=== PATIENT | female | born 1970 | race Caucasian/White ===

== ENCOUNTER 2017-04-22 04:42 | Inpatient (IN) | payer OTHER ==
[2017-04-22 05:28] LABS: #Basophils 0.1 thou/uL (0.0-0.2); #Eosinphils 0.2 thou/uL (0.0-0.7); #Lymphocytes 2.4 thou/uL (1.20-3.40); #Monocytes 0.1 thou/uL (0.11-0.59); #Neutrophils 11.4 thou/uL (1.40-6.50); %Basophils 0.8 % (0.0-1.0); %Eosinophils 1.1 % (0.0-10.0); %Lymphocytes 17.1 % (21.0-51.0); %Monocytes 0.9 % (0.0-10.0); %Neutrophils 80.2 % (42.0-75.0); Hemoglobin 13.1 g/dL (12.0-16.0); Mean Corpuscular HGB CONC 30.9 g/dL (32.0-36.0); Mean Corpuscular Hemoglobin 29.6 pg (27.0-31.0); Mean Corpuscular Volume 95.7 fl (81.0-99.0); Mean Platelet Volume 8.6 fL (7.4-10.4); Platelet Count 295 thou/uL (130-400); Red Blood Cell (RBC) Count 4.43 mill/uL (4.20-5.40); White Blood Cell (WBC) Count 14.3 thou/uL (4.8-10.8)
[2017-04-22 05:59] LABS: ALT (SGPT) 66 U/L (8-55); AST (SGOT) 68 U/L (5-34); Albumin 4.1 g/dL (3.5-5.0); Alkaline Phosphatase 153 U/L (40-150); Anion Gap 14 mmol/L (10-20); BUN (Urea Nitrogen) 15 mg/dL (7.0-18.7); Bilirubin, Total 0.8 mg/dL (0.2-1.2); Calc. Creatinine Clearance 0 mL/min (70-130); Calcium 10.1 mg/dL (7.8-10.44); Carbon Dioxide 28 mmol/L (22-29); Chloride 105 mmol/L (98-107); Estimated GFR-MDRD 90; Globulin 3.5 g/dL (2.4-3.5); Glucose 87 mg/dL (70-105); Potassium 4.1 mmol/L (3.5-5.1); Protein, Total 7.6 g/dL (6.0-8.3); Sodium 143 mmol/L (136-145)
[2017-04-22] MEDS ORDERED: Cefepime 2 GM in Syringe 12.5 ML SLOW IVP SCH (06:15)
[2017-04-22 06:31] LABS: Bilirubin Negative (Negative); Blood, Urine Moderate (Negative); Clarity TURBID (Clear); Glucose, Urine (Dipstick) Negative (Negative); Leukocyte Small (Negative); Nitrite Negative (Negative); Protein, Urine (Dipstick) Negative (Neg-Trace); pH, Urine 5.5 (5.0-9.0)
[2017-04-22 06:34] LABS: Bacteria/HPF 4+ HPF (None Seen); RBC/HPF 21-50 HPF (0-3); Squamous Epithelial 0-3 HPF (0-3)
[2017-04-22 06:35] LABS: Pathc Cast-AUWi Flag 6.89 (0-2.49); Yeast-AUWi Flag 2185.6 (0-25.0)
[2017-04-22 06:50] LABS: Hyaline Casts/LPF 0-3 HYALINE CAST LPF (0-3 Hyaline); Other Casts/LPF None Seen LPF (0-3 Hyaline); Yeast-All Forms None Seen HPF (None Seen)
[2017-04-22] MEDS ORDERED: Gentamicin Sulfate 310 MG in Sodium Chloride 0.9% 100 ML IVPB SCH (07:00)
[2017-04-22] MEDS ORDERED: Ondansetron HCl/PF 4 MG/2 ML Vial ONE (08:11)
[2017-04-22] MEDS ORDERED: Ondansetron HCl/PF 4 MG/2 ML Vial IVP PRN (08:15)
--- NOTE | 2017-04-22 08:25 | RAD ---
CHEST 1 VIEW: Date: 04/22/17 HISTORY: Low O2 sats. COMPARISON: None. FINDINGS: Multifocal air space opacities along the hilum and lower lobes. No pneumothorax. The exam is limited due to patient hypoinflation. IMPRESSION: Multifocal air space opacities may reflect infection or atelectasis. Follow-up 2 views chest recommen ded. POS: SHANA
[2017-04-22] MEDS ORDERED: Acetaminophen 500 MG TAB ONE (10:10)
--- NOTE | 2017-04-22 12:40 | HP-2 ---
DATE OF ADMISSION: 04/22/2017 CODE STATUS: FULL. PRIMARY CARE PHYSICIAN: Aj. ATTENDING: Dr. Crowley. RESIDENT: Dr. Brian Coombs. HISTORIAN: Patient. CHIEF COMPLAINT: Shortness of breath and nausea and vomiting. HISTORY OF PRESENT ILLNESS: This is a 46-year-old female with a past medical history of [place]'s disease, who presents from [facility] with shortness of breath and nausea and vomiting t hat started yesterday. She stated that she also normally requires 2 liters of oxygen at home, but wa s requiring up to 4 liters at home. Also, in the EMS ride on the way over, she was acutely hypoxic i n the upper 80s. She says that she has vomited several times over the past 2 days. She has generali zed weakness and body ache. She did not get a flu shot and her [facility]mate [facility] has been sick. ER, she received gentamicin 5 mg/kg, cefepime 2 grams, vancomycin 1 gram, and 2 liters of normal sali ne. PAST MEDICAL HISTORY: 1. [place] disease. 2. Gastroesophageal reflux disease. 3. Anxiety. 4. Depression. 5. Rheumatoid arthritis. PAST SURGICAL HISTORY: Bilateral cataract surgery. ALLERGIES: LEVAQUIN. MEDICATIONS1 1. Promethazine p.r.n. 2. Benzonatate. 3. Tylenol 500 mg 2 tabs q.4 hours. 4. Tramadol 50 mg q.6 hours. 5. B12. 6. Tizanidine 8 mg daily. 7. Ropinirole 0.25 at bedtime. 5. Protonix 40 mg p.o. daily. 6. Oxybutynin. 7. Namenda 5 mg daily. 8. Methotrexate 10 mg daily. 9. Lisinopril 10 mg daily. 10. Gabapentin 600 mg t.i.d. 11. Folic acid. 12. Clonazepam 1 mg b.i.d. 13. Celexa 20 mg daily. 14. Amitriptyline 50 mg daily. 15. Tylenol plus Codeine p.r.n. SOCIAL HISTORY: Denies tobacco, alcohol, or drug use. REVIEW OF SYSTEMS: General: Endorses fevers and chills. HEENT: Endorses nasal congestion. Respir atory: Endorses cough, congestion, shortness of breath. Cardiovascular: Denies chest pain, palpita tions. Gastrointestinal: Denies nausea, vomiting. Genitourinary: Denies incontinence, dysuria. S kin: Denies rashes or lesions. Musculoskeletal: Denies pain or tenderness. Neurologic: Endorses weakness, generalized. Psychiatric: Endorses anxiety and depression. PHYSICAL EXAMINATION: VITAL SIGNS: Blood pressure 121-144/77-80, pulse 124-142, respiratory rate 22-26, T-max 98.4, pulse ox 97% on 4 liters, weight 86 kilograms. GENERAL: Alert and oriented x4, in no apparent distress. Appropriately interactive. HEENT: PERRLA, EOMI. Nasal mucosa and oropharynx within normal limits. NECK: Supple, no lymphadenopathy or thyromegaly. CARDIOVASCULAR: Tachycardic. No murmurs, rubs, or gallops. A 2+ pedal pulses bilaterally. LUNGS: Increased effort but no retractions. Crackles diffusely bilaterally. SKIN: Warm and dry. No cyanosis. ABDOMEN: Soft, mildly tender to palpation in the right and left upper quadrants. No mass or distent ion. EXTREMITIES: No clubbing, cyanosis, or edema. MUSCULOSKELETAL: Structure within normal limits. NEUROLOGICAL: No focal deficits. Sensation within normal limits. Cranial nerves intact. GCS 15. PSYCHIATRIC: Appropriate. LABORATORY DATA: 1. CBC: 14.3, 13.1, 42.4, 295. 2. CMP: 143, 4.1, 105, 28, 15, 0.7, 87. 3. AST, ALT, alkaline phosphatase 68, 66, 153. 4. Calcium, total protein, albumin, 10.1, 7.6, 4.1. 5. Total bilirubin 0.8. 6. Lactic acid 2.8. 7. UA: Leukocyte esterase small, white blood cells 7-10. 8. Influenza B positive. 9. EKG sinus tachycardia with PVCs LAD and LVH. 10. Chest x-ray: Diffuse opacities bilaterally. ASSESSMENT AND PLAN: A 46-year-old female with a past medical history of [place]'s disease, who p resents with shortness of breath and nausea and vomiting over the past 2 days with an increased oxyge n requirement. She was admitted for acute on chronic hypoxic respiratory failure and sepsis due to i nfluenza pneumonia, influenza B positive. 1. Acute on chronic hypoxic respiratory failure. This is likely due to her influenza pneumonia as w ell as her chronic lung disease relating to her [place]'s. She was bolused 2 liters of normal arelis ine in ER. We will provide an additional bolus to meet the 30 mg/kg requirement for sepsis. We also placed the patient on maintenance fluids of 200 mL an hour of normal saline. We will do continuous pulse oximetry. Continue oxygen as needed. Currently, is requiring 2-4 liters and we will admit her to the IMCU with anticipation of downgrading if the patient becomes more hemodynamically stable. 2. Sepsis secondary to influenza pneumonia versus a community-acquired pneumonia. We will start the patient on Tamiflu. We will continue the patient's vancomycin and cefepime right now. A lot of hector es coinfection with methicillin-resistant Staphylococcus aureus is common in the setting of influenza pneumonia. We will repeat a CBC and CMP in the morning. We sent the patient's blood and urine for culture. Repeat a chest x-ray tomorrow morning. 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 4. Gastroesophageal reflux disease. We will restart her home medications. 5. Depression, anxiety. We will restart her home medications. DISPOSITION AND LENGTH OF HOSPITAL STAY: 3 days. Symptomatic medications will be provided. History and physical exam as well as management discussed with Dr. Crowley.
[2017-04-22] MEDS: Enoxaparin Sodium 40 MG/0.4 ML SYRINGE SC SCH (15:00)
[2017-04-22] MEDS: Vancomycin HCl 1.25 GM in Sodium Chloride 0.9% 250 ML 250 ML IVPB SCH ×2 (15:00→16:46)
[2017-04-22] MEDS: Sodium Chloride 0.9% 1,000 ML IV SCH ×4 (15:00→22:48)
[2017-04-22] MEDS: Oseltamivir 75 MG CAP PO SCH ×2 (15:00→21:21)
[2017-04-22 15:03] VITALS: BMI 37.0
[2017-04-22] MEDS ORDERED: Cefepime 2 GM in Sodium Chloride 0.9% 100 ML IVPB SCH (18:00)
[2017-04-22] MEDS ORDERED: Benzonatate 100 MG CAP PO PRN (18:22)
[2017-04-22] MEDS ORDERED: Albuterol Sulfate 2.5 mg/3 ml Neb NEB PRN (18:22)
[2017-04-22] MEDS ORDERED: Promethazine 25 MG TAB PO PRN (18:22)
[2017-04-22] MEDS ORDERED: Acetaminophen 500 MG TAB PO PRN (18:22)
[2017-04-22] MEDS ORDERED: HYDROcodone/Acetaminophen 5/325 mg Tablet PO PRN (18:24)
[2017-04-22] MEDS: Cefepime 2 GM, Syringe 2.5 ML in Sterile Water 10 ML SLOW IVP SCH (18:27)
[2017-04-22] MEDS: rOPINIRole HCl 0.25 MG TAB PO SCH (21:21)
[2017-04-22] MEDS: DULoxetine 60 MG CAP PO SCH (21:21)
[2017-04-22] MEDS: Gabapentin 300 MG CAP PO SCH (21:21)
[2017-04-22] MEDS: OLANZapine 5 MG TAB PO SCH (21:21)
--- NOTE | 2017-04-22 21:39 | HP ---
ATTENDING NOTE DATE OF SERVICE: 04/22/2017 CHIEF COMPLAINT: Shortness of breath. HISTORY OF PRESENT ILLNESS: The patient is a 46-year-old female with a past medical history of [place]'s disease, rheumatoid arthritis, GERD, anxiety, and depression, who presented from [facility] with shortness of breath as well as nausea and vomiting. The patient states that her symp toms started acutely yesterday. She is oxygen dependent, usually using 2 liters of oxygen via nasal cannula, but had to be increased to 4 liters due to hypoxia. She was noted to have sats that were dr opping down into the 80s. She also endorsed several episodes of vomiting, generalized weakness, and body aches. She does have positive sick contact in that her roommate at the retirement was sick; h owever, she does not know what she is. In the ER, the patient tested positive for the flu. It was a lso noted that she had pneumonia on chest x-ray and she was started on gentamicin, cefepime, and vanc omycin. She was quite tachycardic in the 140s to 150s, received 2 liters of normal saline. The elizabeth ent notes that she does not feel well, but she is starting to feel a little better from when she firs t arrived in the ER. PHYSICAL EXAMINATION: VITAL SIGNS: Blood pressure 111/78, pulse 128, respiration rate 20, T-max 98.4, pulse ox 94% on 2.5 liters nasal cannula. GENERAL: The patient is alert and oriented x4, in no acute distress. HEENT: Mucous membranes are somewhat dry. Pupils are equal, round, and reactive to light and accomm odation. Extraocular muscles are intact. NECK: Supple without lymphadenopathy, thyromegaly, or bruits. CARDIOVASCULAR: Patient is tachycardic without murmurs, gallops, or rubs. RESPIRATORY: Lungs show diffuse crackles and scattered wheezes throughout. The patient does not hav e any retractions. ABDOMEN: Soft and nontender to palpation with bowel sounds present in four quadrants. Abdomen is no ndistended. EXTREMITIES: There is no clubbing, cyanosis, or edema. LABORATORY DATA: 1. CBC: WBC is 14.3, hemoglobin 13.1, hematocrit 42.1, platelet count 295. 2. CMP: Sodium 143, potassium 4.1, chloride 105, bicarb 28, BUN 15, creatinine 0.70, glucose 87, ca lcium 10.1, total bilirubin 0.8, AST 68, ALT 66, alkaline phosphatase 153. Total protein 7.6. 3. Lactic acid 2.8, then up to 3.8 4. Urinalysis is significant for moderate blood, leukocyte esterase small, urine bacteria 4+, white blood cells 7-10, red blood cells 21-50. 5. Insulin B positive. 6. EKG showed sinus tachycardia with PVCs. 7. Chest x-ray shows diffuse opacities bilaterally. ASSESSMENT AND PLAN: 1. Acute on chronic hypoxic respiratory failure: This is likely secondary to her influenza pneumoni a and chronic lung disease. She has a return agent, but he works out of the [facility]. We will continue the patient on nasal cannula and wean oxygen as tolerated. 2. Sepsis secondary to influenza pneumonia: The patient is going to be started on Tamiflu. She is also going to be placed on broad spectrum antibiotics in the event that this is a bacterial pneumonia instead of a viral pneumonia. She will continue on vancomycin and cefepime. She has already receiv ed gentamicin. We will trend the patient's white count and add additional fluid as the patient has a lactic acidosis and is still tachycardic. Blood and urine cultures are being obtained. 3. Elisa's disease: We will restart her home medication. 4. Rheumatoid arthritis: The patient with chronic joint pains. We will restart her home regimen. Please see Dr. Joy Torres's dictation for the full history, physical, assessment, and plan. I revi ewed the case in detail with her and agree with her documentation and I have repeated pertinent porti ons of the history and physical myself.
[2017-04-23] MEDS: Vancomycin HCl 1.25 GM in Sodium Chloride 0.9% 250 ML 250 ML IVPB SCH ×2 (01:32→10:24)
[2017-04-23] MEDS: Cefepime 2 GM, Syringe 2.5 ML in Sterile Water 10 ML SLOW IVP SCH ×2 (05:13→17:47)
[2017-04-23] MEDS: Sodium Chloride 0.9% 1,000 ML IV SCH ×2 (05:14→07:51)
[2017-04-23 05:15] LABS: #Basophils 0.1 thou/uL (0.0-0.2); #Eosinphils 0.5 thou/uL (0.0-0.7); #Lymphocytes 1.9 thou/uL (1.20-3.40); #Monocytes 0.5 thou/uL (0.11-0.59); #Neutrophils 10.5 thou/uL (1.40-6.50); %Basophils 0.4 % (0.0-1.0); %Eosinophils 3.9 % (0.0-10.0); %Lymphocytes 14.2 % (21.0-51.0); %Neutrophils 77.5 % (42.0-75.0); Hemoglobin 9.5 g/dL (12.0-16.0); Mean Corpuscular HGB CONC 31.5 g/dL (32.0-36.0); Mean Corpuscular Hemoglobin 30.3 pg (27.0-31.0); Mean Corpuscular Volume 96.1 fl (81.0-99.0); Mean Platelet Volume 8.7 fL (7.4-10.4); Platelet Count 200 thou/uL (130-400); RBC Distribution Width 15.7 % (11.5-14.5); Red Blood Cell (RBC) Count 3.14 mill/uL (4.20-5.40); White Blood Cell (WBC) Count 13.5 thou/uL (4.8-10.8)
[2017-04-23 05:28] LABS: ALT (SGPT) 44 U/L (8-55); AST (SGOT) 29 U/L (5-34); Alkaline Phosphatase 109 U/L (40-150); Anion Gap 9 mmol/L (10-20); BUN (Urea Nitrogen) 8 mg/dL (7.0-18.7); Bilirubin, Total 0.7 mg/dL (0.2-1.2); Calc. Creatinine Clearance 179 mL/min (70-130); Calcium 8.8 mg/dL (7.8-10.44); Carbon Dioxide 27 mmol/L (22-29); Chloride 108 mmol/L (98-107); Estimated GFR-MDRD Greater than 90; Globulin 2.1 g/dL (2.4-3.5); Glucose 87 mg/dL (70-105); Potassium 3.9 mmol/L (3.5-5.1); Protein, Total 5.1 g/dL (6.0-8.3); Sodium 140 mmol/L (136-145)
[2017-04-23] MEDS: tiZANidine HCl 4 MG TAB PO SCH (07:40)
[2017-04-23] MEDS: Ferrous Sulfate 325 MG TAB PO SCH ×2 (07:40→15:57)
[2017-04-23] MEDS: Folic Acid 1 MG TAB PO SCH (07:41)
[2017-04-23] MEDS: Gabapentin 300 MG CAP PO SCH ×3 (07:42→22:22)
[2017-04-23] MEDS: Cyanocobalamin (Vitamin B-12) 1,000 MCG TAB PO SCH (07:42)
[2017-04-23] MEDS: Oseltamivir 75 MG CAP PO SCH ×2 (07:42→22:22)
[2017-04-23] MEDS: Enoxaparin Sodium 40 MG/0.4 ML SYRINGE SC SCH (07:43)
[2017-04-23] MEDS: Oxybutynin ER 5 MG TAB PO SCH (07:43)
[2017-04-23] MEDS: clonazePAM 0.5 MG TAB PO SCH (07:43)
[2017-04-23] MEDS: Lisinopril 10 MG TAB PO SCH (07:46)
[2017-04-23 08:20] LABS: Vancomycin, Trough 24.4 ug/mL
--- NOTE | 2017-04-23 09:23 | PDOC.FM ---
- Subjective Subjective: The patient reports that her breathing has improved some since yesterday, but she is still not back at her baseline. She has moments where she has trouble catching her breath and feels like someone is sitting on her chest. She is on 2 L O2 at the skilled nursing. She denies any chest pain. She has chronic nausea and leg pain that are stable. - Objective MAR Reviewed: Yes Vital Signs & Weight: Vital Signs (12 hours) Temp Pulse Resp BP Pulse Ox 04/23/17 08:25 99.0 F 108 H 20 108/64 99 04/23/17 05:00 98.8 F 94 16 106/69 98 04/23/17 01:00 98.4 F 92 16 119/73 100 Weight Weight 86 kg Result Diagrams: 04/23/17 04:45 04/23/17 04:45 <Lorene Fonseca - Last Filed: 04/23/17 11:28> - Objective Vital Signs & Weight: Vital Signs (12 hours) Temp Pulse Resp BP Pulse Ox 04/23/17 11:51 99.1 F 87 20 93/61 99 04/23/17 08:25 99.0 F 108 H 20 108/64 99 04/23/17 08:00 99.0 F 108 H 20 100 04/23/17 05:00 98.8 F 94 16 106/69 98 Weight Weight 86 kg Result Diagrams: 04/23/17 04:45 04/23/17 04:45 <Barrington Weston - Last Filed: 04/23/17 13:25> Phys Exam - Physical Examination Constitutional: NAD HEENT: moist MMs rales bilaterally Cardiovascular: RRR, no significant murmur, no rub Gastrointestinal: soft, no distention, positive bowel sounds mildly tender to palpation diffusely Musculoskeletal: pulses present, edema present Psychiatric: normal affect, A&O x 3 <Lorene Fonseca - Last Filed: 04/23/17 11:28> Dx/Plan (1) Acute and chronic respiratory failure with hypoxia Code(s): J96.21 - ACUTE AND CHRONIC RESPIRATORY FAILURE WITH HYPOXIA Status: Acute (2) Sepsis due to pneumonia Code(s): J18.9 - PNEUMONIA, UNSPECIFIED ORGANISM; A41.9 - SEPSIS, UNSPECIFIED ORGANISM Status: Acute (3) Influenza B Code(s): J10.1 - FLU DUE TO OTH IDENT INFLUENZA VIRUS W OTH RESP MANIFEST Status: Acute (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 Acute on Chronic Hypoxic Respiratory Failure 2/2 Influenza Pneumonia Patient on 2L O2 at home. Positive for Influenza B. Possible infiltrate seen on portable CXR. -Cefepime day 2, Vanc day 2 - concern for MRSA with influenza -Tamiflu day 2 -Continue O2 prn, wean as tolerated -Vanc trough supratheraputic, will adjust -Will repeat CXR today 2. Sepsis 2/2 Pneumonia s/p aggressive fluid resuscitation -Will d/c fluids as pt is tolerating fluids well -Cont Cefepime, Vanc, and Tamiflu -Check urinary Legionella and Strep pneumo antigens 3. UTI 2/2 alpha hemolytic streptococcus -will await sensitivities -should be covered by current abx 4. Normocytic Anemia there is likely a dilutional component. Patient is not actively bleeding. -Will check FOBT and monitor 5. [place]'s disease -patient has chronic pain, will continue home meds 6. Anxiety/Depression -stable, continue home meds 7. HTN -continue home meds <Lorene Fonseca - Last Filed: 04/23/17 11:28> Attending Addendum - Attending Addendum I personally evaluated the patient and discussed the management with Dr. Fonseca. I agree with the History, Examination, Assessment and Plan documented above with any addition or exceptions noted below. Patient is currently back on baseline O2 requirement, but continues to have feelings of shortness of breath associated with her respiratory disease. Afebrile and WBC downtrending. CXR appears suspicious more for bacterial pneumonia than just a viral pneumonia, but repeat CXR today. Will continue abx at this time. She has a new appearing anemia, a drop in almost 4grams since admission, though some could be dilutional. Will check FOBT and ensure no evidence of bleeding, though patient denies it. Will check urine pneumonia antigens to see if we can specify her cause of pneumonia. Mild tachycardia, but will monitor. <Barrington Weston - Last Filed: 04/23/17 13:25>
[2017-04-23] MEDS: Acetaminophen/Codeine 30-300mg Tablet PO SCH ×3 (10:28→22:38)
--- NOTE | 2017-04-23 12:55 | RAD ---
PORTABLE CHEST ONE VIEW: 04/23/2017 11:13 a.m. HISTORY: Pneumonia. FINDINGS: Mild apical air space opacities in the lower lung padron are again seen bilaterally. No pneumothorac es or pleural effusions are identified. IMPRESSION: Stable exam. POS: YANETH
[2017-04-23] MEDS: Vancomycin HCl 1 GM in Premix Bag 1 BAG IVPB SCH ×2 (13:33→22:33)
[2017-04-23 14:24] LABS: Legionella Urinary Ag Negative (Negative)
[2017-04-23 14:25] LABS: Strep pneumo Urine Ag NEGATIVE (NEGATIVE)
[2017-04-23] MEDS: DULoxetine 60 MG CAP PO SCH (22:22)
[2017-04-23] MEDS: rOPINIRole HCl 0.25 MG TAB PO SCH (22:23)
[2017-04-23] MEDS: OLANZapine 5 MG TAB PO SCH (22:23)
[2017-04-24] MEDS: Acetaminophen/Codeine 30-300mg Tablet PO SCH ×4 (04:47→22:06)
[2017-04-24] MEDS: Cefepime 2 GM, Syringe 2.5 ML in Sterile Water 10 ML SLOW IVP SCH (04:49)
[2017-04-24 05:51] LABS: #Eosinphils 0.4 thou/uL (0.0-0.7); #Lymphocytes 1.6 thou/uL (1.20-3.40); #Monocytes 0.6 thou/uL (0.11-0.59); #Neutrophils 6.9 thou/uL (1.40-6.50); %Basophils 0.3 % (0.0-1.0); %Eosinophils 4.7 % (0.0-10.0); %Lymphocytes 16.7 % (21.0-51.0); %Monocytes 5.8 % (0.0-10.0); %Neutrophils 72.4 % (42.0-75.0); Hemoglobin 9.6 g/dL (12.0-16.0); Mean Corpuscular HGB CONC 30.4 g/dL (32.0-36.0); Mean Corpuscular Hemoglobin 29.4 pg (27.0-31.0); Mean Corpuscular Volume 96.7 fl (81.0-99.0); Mean Platelet Volume 8.8 fL (7.4-10.4); Platelet Count 204 thou/uL (130-400); RBC Distribution Width 15.9 % (11.5-14.5); Red Blood Cell (RBC) Count 3.27 mill/uL (4.20-5.40); White Blood Cell (WBC) Count 9.6 thou/uL (4.8-10.8)
[2017-04-24 05:59] LABS: ALT (SGPT) 32 U/L (8-55); AST (SGOT) 13 U/L (5-34); Albumin 3.1 g/dL (3.5-5.0); Alkaline Phosphatase 120 U/L (40-150); Anion Gap 9 mmol/L (10-20); BUN (Urea Nitrogen) 9 mg/dL (7.0-18.7); Bilirubin, Total 0.4 mg/dL (0.2-1.2); Calc. Creatinine Clearance 161 mL/min (70-130); Calcium 8.9 mg/dL (7.8-10.44); Carbon Dioxide 28 mmol/L (22-29); Chloride 107 mmol/L (98-107); Estimated GFR-MDRD Greater than 90; Globulin 2.4 g/dL (2.4-3.5); Glucose 107 mg/dL (70-105); Potassium 3.7 mmol/L (3.5-5.1); Protein, Total 5.5 g/dL (6.0-8.3); Sodium 140 mmol/L (136-145)
[2017-04-24] MEDS: Vancomycin HCl 1 GM in Premix Bag 1 BAG IVPB SCH (06:23)
[2017-04-24] MEDS: Gabapentin 300 MG CAP PO SCH ×3 (08:38→20:33)
[2017-04-24] MEDS: Folic Acid 1 MG TAB PO SCH (08:38)
[2017-04-24] MEDS: Lisinopril 10 MG TAB PO SCH (08:39)
[2017-04-24] MEDS: Oseltamivir 75 MG CAP PO SCH ×2 (08:40→20:35)
[2017-04-24] MEDS: Oxybutynin ER 5 MG TAB PO SCH (08:40)
[2017-04-24] MEDS: Enoxaparin Sodium 40 MG/0.4 ML SYRINGE SC SCH (08:41)
[2017-04-24] MEDS: clonazePAM 0.5 MG TAB PO SCH (08:41)
[2017-04-24] MEDS: tiZANidine HCl 4 MG TAB PO SCH (08:41)
[2017-04-24] MEDS: Cyanocobalamin (Vitamin B-12) 1,000 MCG TAB PO SCH (08:41)
[2017-04-24] MEDS: Ferrous Sulfate 325 MG TAB PO SCH ×2 (08:41→16:39)
--- NOTE | 2017-04-24 08:43 | PDOC.FM ---
- Subjective Subjective: Patient doing well this AM. She reports that her breathing is almost back at her baseline. She denies any chest pain. She is still having some nausea, but no vomiting. She is tolerating PO well. - Objective MAR Reviewed: Yes Vital Signs & Weight: Weight Weight 86 kg I&O: 04/23/17 04/24/17 04/25/17 06:59 06:59 06:59 Intake Total 500 Balance 500 Result Diagrams: 04/24/17 05:07 04/24/17 05:07 <Lorene Fonseca - Last Filed: 04/24/17 08:39> - Objective Vital Signs & Weight: Vital Signs (12 hours) Temp Pulse Resp BP BP Pulse Ox 04/24/17 11:09 98.2 F 65 14 92/60 100 04/24/17 08:39 105/71 04/24/17 08:00 98.2 F 82 20 99/65 100 Weight Weight 86 kg I&O: 04/23/17 04/24/17 04/25/17 06:59 06:59 06:59 Intake Total 500 Balance 500 Result Diagrams: 04/24/17 05:07 04/24/17 05:07 <Barrington Weston - Last Filed: 04/24/17 12:27> Phys Exam - Physical Examination Constitutional: NAD HEENT: moist MMs Respiratory: no wheezing, no rales, no rhonchi, clear to auscultation bilateral Cardiovascular: RRR, no significant murmur, no rub Gastrointestinal: soft, non-tender, no distention, positive bowel sounds Musculoskeletal: no edema, pulses present Psychiatric: normal affect, A&O x 3 <Lorene Fonseca - Last Filed: 04/24/17 08:39> Dx/Plan (1) Acute and chronic respiratory failure with hypoxia Code(s): J96.21 - ACUTE AND CHRONIC RESPIRATORY FAILURE WITH HYPOXIA Status: Acute (2) Sepsis due to pneumonia Code(s): J18.9 - PNEUMONIA, UNSPECIFIED ORGANISM; A41.9 - SEPSIS, UNSPECIFIED ORGANISM Status: Acute (3) Influenza B Code(s): J10.1 - FLU DUE TO OTH IDENT INFLUENZA VIRUS W OTH RESP MANIFEST Status: Acute (4) [place]'s disease Code(s): G10 - MONY'S DISEASE Status: Acute (5) Anxiety Code(s): F41.9 - ANXIETY DISORDER, UNSPECIFIED Status: Acute (6) Depression Code(s): F32.9 - MAJOR DEPRESSIVE DISORDER, SINGLE EPISODE, UNSPECIFIED Status : Acute QualifierTitle: Depression Type: unspecified Qualified Code(s): F32.9 - Major depressive disorder, single episode, unspecified (7) HTN (hypertension) Code(s): I10 - ESSENTIAL (PRIMARY) HYPERTENSION Status: Acute QualifierTitle: Hypertension type: essential hypertension Qualified Code( s): I10 - Essential (primary) hypertension (8) UTI (urinary tract infection) Status: Acute QualifierTitle: Urinary tract infection type: acute cystitis Hematuria presence: without hematuria Qualified Code(s): N30.00 - Acute cystitis without hematuria - Plan Plan: 1. Acute on Chronic Hypoxic Respiratory Failure 2/2 Influenza Pneumonia Patient on 2L O2 at home. Positive for Influenza B. Possible infiltrate seen on portable CXR. -Cefepime day 3, Vanc day 3 - concern for MRSA with influenza -Tamiflu day 3 -Continue O2 prn, wean as tolerated 2. Sepsis 2/2 Pneumonia s/p aggressive fluid resuscitation -d/c'd fluids as pt is tolerating fluids well -Cont Cefepime, Vanc, and Tamiflu, consider transitioning to PO abx -Check urinary Legionella and Strep pneumo antigens 3. UTI 2/2 aerococcus viridans -should be covered by vanc, consider transitioning to keflex today 4. Normocytic Anemia there is likely a dilutional component. Patient is not actively bleeding. This has stabilized today -Will check FOBT and monitor 5. [place]'s disease -patient has chronic pain, will continue home meds 6. Anxiety/Depression -stable, continue home meds 7. HTN -continue home meds <Lorene Fonseca - Last Filed: 04/24/17 08:39> Attending Addendum - Attending Addendum I personally evaluated the patient and discussed the management with Dr. Fonseca. I agree with the History, Examination, Assessment and Plan documented above with any addition or exceptions noted below. Patient doing well and has near return to baseline of oxygenation status. She continues on treatment for influenza, and reports feeling better. Her cultures are negative, WBC normal, and afebrile, will de-escalate abx therapy at this time. Will need 1 more day of monitoring to ensure she does not decompensate with change in therapy. Her Hgb is stable and her decrease is likely a chronic anemia. Awaiting FOBT. Hopeful discharge tomorrow if doing well. <Barrington Weston - Last Filed: 04/24/17 12:27>
[2017-04-24] MEDS: Amoxicillin/Potassium Clav 500 MG TAB PO SCH (20:32)
[2017-04-24] MEDS: DULoxetine 60 MG CAP PO SCH (20:33)
[2017-04-24] MEDS: OLANZapine 5 MG TAB PO SCH (20:34)
[2017-04-24] MEDS: rOPINIRole HCl 0.25 MG TAB PO SCH (20:35)
[2017-04-25] MEDS: Acetaminophen/Codeine 30-300mg Tablet PO SCH ×2 (04:53→11:28)
[2017-04-25 05:05] LABS: #Basophils 0.1 thou/uL (0.0-0.2); #Eosinphils 0.5 thou/uL (0.0-0.7); #Lymphocytes 1.6 thou/uL (1.20-3.40); #Monocytes 0.5 thou/uL (0.11-0.59); #Neutrophils 4.4 thou/uL (1.40-6.50); %Basophils 1.2 % (0.0-1.0); %Eosinophils 6.6 % (0.0-10.0); %Lymphocytes 22.9 % (21.0-51.0); %Monocytes 6.7 % (0.0-10.0); %Neutrophils 62.7 % (42.0-75.0); Hemoglobin 10.1 g/dL (12.0-16.0); Mean Corpuscular HGB CONC 31.4 g/dL (32.0-36.0); Mean Corpuscular Hemoglobin 30.3 pg (27.0-31.0); Mean Corpuscular Volume 96.7 fl (81.0-99.0); Mean Platelet Volume 8.8 fL (7.4-10.4); Platelet Count 205 thou/uL (130-400); RBC Distribution Width 15.7 % (11.5-14.5); Red Blood Cell (RBC) Count 3.34 mill/uL (4.20-5.40); White Blood Cell (WBC) Count 6.9 thou/uL (4.8-10.8)
[2017-04-25] MEDS: clonazePAM 0.5 MG TAB PO SCH (08:33)
[2017-04-25] MEDS: Gabapentin 300 MG CAP PO SCH ×2 (08:33→15:12)
[2017-04-25] MEDS: Folic Acid 1 MG TAB PO SCH (08:33)
[2017-04-25] MEDS: Amoxicillin/Potassium Clav 500 MG TAB PO SCH (08:33)
[2017-04-25] MEDS: tiZANidine HCl 4 MG TAB PO SCH (08:34)
[2017-04-25] MEDS: Enoxaparin Sodium 40 MG/0.4 ML SYRINGE SC SCH (08:34)
[2017-04-25] MEDS: Ferrous Sulfate 325 MG TAB PO SCH (08:34)
[2017-04-25] MEDS: Oseltamivir 75 MG CAP PO SCH (08:34)
[2017-04-25] MEDS: Lisinopril 10 MG TAB PO SCH (08:34)
[2017-04-25] MEDS: Cyanocobalamin (Vitamin B-12) 1,000 MCG TAB PO SCH (08:34)
[2017-04-25] MEDS: Oxybutynin ER 5 MG TAB PO SCH (08:38)
--- NOTE | 2017-04-25 10:29 | PDOC.FM ---
- Subjective Subjective: Patient reports being back to baseline. She has no other complaints this morning. She does report vomiting twice overnight but ate breakfast this AM and tolerated it well. - Objective MAR Reviewed: Yes Vital Signs & Weight: Vital Signs (12 hours) Temp Pulse Resp BP Pulse Ox 04/25/17 07:57 98.7 F 83 16 100/67 100 04/25/17 05:34 97.6 F 83 18 112/70 100 04/24/17 22:48 98.0 F 82 16 100 Weight Weight 86 kg I&O: 04/24/17 04/25/17 04/26/17 06:59 06:59 06:59 Intake Total 500 1830 Balance 500 1830 Result Diagrams: 04/25/17 04:41 04/24/17 05:07 <Lorene Grissom - Last Filed: 04/25/17 11:06> - Objective Vital Signs & Weight: Vital Signs (12 hours) Temp Pulse Resp BP Pulse Ox 04/25/17 11:28 97.9 F 86 18 96/65 100 04/25/17 08:00 98.7 F 83 16 04/25/17 07:57 98.7 F 83 16 100/67 100 04/25/17 05:34 97.6 F 83 18 112/70 100 Weight Weight 86 kg I&O: 04/24/17 04/25/17 04/26/17 06:59 06:59 06:59 Intake Total 500 1830 Balance 500 1830 Result Diagrams: 04/25/17 04:41 04/24/17 05:07 <Barrington Weston - Last Filed: 04/25/17 12:27> Phys Exam - Physical Examination Constitutional: NAD Respiratory: no wheezing, no rales few BLL crackles, good air movement Cardiovascular: RRR, no significant murmur Gastrointestinal: soft, non-tender Musculoskeletal: no edema Deviation from normal: seems somewhat withdrawn Skin: cap refill <2 seconds <Lorene Grissom - Last Filed: 04/25/17 11:06> Dx/Plan (1) Influenza B Code(s): J10.1 - FLU DUE TO OTH IDENT INFLUENZA VIRUS W OTH RESP MANIFEST Status: Acute Plan: Cont for total of 10 day tamiflu (2) Acute and chronic respiratory failure with hypoxia Code(s): J96.21 - ACUTE AND CHRONIC RESPIRATORY FAILURE WITH HYPOXIA Status: Resolved Plan: Back to her baseline of 2lts O2. -on tamiflu, cont for total of 10 day course. - cont augmentin Likely DC later today back to lampstand. (3) UTI (urinary tract infection) Status: Acute QualifierTitle: Urinary tract infection type: acute cystitis Hematuria presence: without hematuria Qualified Code(s): N30.00 - Acute cystitis without hematuria Plan: cont on augmentin for total 7 days. (4) Sepsis due to pneumonia Code(s): J18.9 - PNEUMONIA, UNSPECIFIED ORGANISM; A41.9 - SEPSIS, UNSPECIFIED ORGANISM Status: Resolved Plan: improved s/p fluid administration. Tolerating PO. Likely 2/2 to influenza. (5) Depression Code(s): F32.9 - MAJOR DEPRESSIVE DISORDER, SINGLE EPISODE, UNSPECIFIED Status : Acute QualifierTitle: Depression Type: unspecified Qualified Code(s): F32.9 - Major depressive disorder, single episode, unspecified (6) HTN (hypertension) Code(s): I10 - ESSENTIAL (PRIMARY) HYPERTENSION Status: Acute QualifierTitle: Hypertension type: essential hypertension Qualified Code( s): I10 - Essential (primary) hypertension (7) [place]'s disease Code(s): G10 - MONY'S DISEASE Status: Acute <Lorene Grissom - Last Filed: 04/25/17 11:06> Attending Addendum - Attending Addendum I personally evaluated the patient and discussed the management with Dr. Grissom. I agree with the History, Examination, Assessment and Plan documented above with any addition or exceptions noted below. Patient with downtrending WBC and no fevers with change to oral abx. Her O2 is at baseline and she feels well. Stable for discharge. <Barrington Weston - Last Filed: 04/25/17 12:27>
[2017-04-25 11:28] VITALS: BP 96/65; TEMP 97.9
--- NOTE | 2017-04-27 23:23 | DIS-2 ---
DATE OF ADMISSION: 04/22/2017. DATE OF DISCHARGE: 04/25/2017. ADMITTING RESIDENT: Joy Torres MD DISCHARGE RESIDENT: Lorene Fonseca MD CONSULTATIONS: None. PROCEDURES: None. IMAGIN. Chest x-ray showed multifocal airspace opacities, may represent infection or atelectasis. 2. Repeat chest x-ray showed mild apical airspace opacities in the lower lung padron are again seen bilaterally. Stable exam. PRIMARY DIAGNOSES: 1. Acute on chronic hypoxic respiratory failure. 2. Sepsis. 3. Pneumonia. 4. Influenza B. 5. Urinary tract infection. SECONDARY DIAGNOSES: 1. Gastroesophageal reflux disease. 2. Depression. 3. Anxiety. 4. Elisa's disease. 5. Hypertension. DISCHARGE MEDICATIONS: 1. Acetaminophen 500 mg p.o. q.4 hours p.r.n. pain. 2. Acetaminophen and codeine 2 tablets p.o. q.6 hours. 3. Albuterol 3 mL nebulized q.6 hours p.r.n. shortness of breath or wheezing. 4. Augmentin 500 mg p.o. q.12 hours, dispensed #12. 5. Tessalon Perles 100 mg p.o. t.i.d. p.r.n. cough. 6. Clonazepam 0.5 mg p.o. daily. 7. Vitamin B12 1000 mcg p.o. daily. 8. Cymbalta 60 mg p.o. at bedtime. 9. Ferrous sulfate 325 mg p.o. b.i.d. 10. Folic acid 1 mg p.o. daily. 11. Gabapentin 600 mg p.o. t.i.d. 12. Lisinopril 10 mg p.o. daily. 13. Memantine 5 mg p.o. daily. 14. Methotrexate 10 mg p.o. daily on Sunday. 15. Olanzapine 15 mg p.o. at bedtime. 16. Tamiflu 75 mg p.o. b.i.d., dispensed #3. 17. Oxybutynin chloride 5 mg p.o. daily. 18. Pantoprazole 40 mg p.o. daily. 19. Phenergan 25 mg p.o. q.6 hours p.r.n. nausea. 20. Ropinirole 0.25 mg p.o. at bedtime. 21. Tizanidine 8 mg p.o. daily. 22. Tramadol 50 mg p.o. q.6 hours p.r.n. pain. DISCONTINUED MEDICATIONS: None. HISTORY OF PRESENT ILLNESS/HOSPITAL COURSE: This is a 46-year-old female with a past medical history of Kane's disease, anxiety, and depression who presented to the ER with shortness of breath, n ausea, vomiting over the past few days as well as increased oxygen requirement. The patient uses 2 l [facility]ers of oxygen at [facility], but was requiring 4 liters of oxygen to keep from being hypoxic. On the EMS ride on the way over, she became acutely hypoxic to the upper 80s. She also reported vomiti ng several times in the past few days, as well as generalized weakness and body aches. The patient w as found to be influenza B positive and was satting in the 90s on 4 liters of oxygen. Her blood cult ures grew no growth. Her initial white count was 14.3, trended down throughout her admission. She w as initially treated with vancomycin and cefepime, but after a few days of seeing improvement, this w as switched to Augmentin. The patient's symptoms were likely secondary to the flu; however, there wa s concern for pneumonia based on her chest x-ray findings, so she was treated accordingly. She was a lso treated with Tamiflu. The patient initially had some dysuria and abdominal pain, and her urine c ulture grew out Aerococcus viridans. This was also treated with the Augmentin. The patient by her l ast day of hospitalization had been weaned down to her home oxygen requirement of 2 liters and was sa tting well on this amount of oxygen and the patient symptomatically improved. She was [facility] ember e [facility] the [facility] on Augmentin and Tamiflu in stable condition. DISPOSITION: Stable. DISCHARGE INSTRUCTIONS: 1. Location: [facility]. 2. Diet: Regular. 3. Activity: Cardiopulmonary limitations. 4. Followup: Follow up with Dr. Crowley within 7 days.
[2017-04-28] MEDS ORDERED: Methotrexate Sodium 2.5 MG TAB PO SCH (09:00)
--- NOTE | 2017-04-28 17:29 | EKG ---
Test Reason : Blood Pressure : / mmHG Vent. Rate : 129 BPM Atrial Rate : 129 BPM P-R Int : 158 ms QRS Dur : 108 ms QT Int : 278 ms P-R-T Axes : 017 -39 085 degrees QTc Int : 407 ms Sinus tachycardia with frequent Premature ventricular complexes Left axis deviation Left ventricular hypertrophy with repolarization abnormality Cannot rule out Septal infarct , age undetermined Abnormal ECG Confirmed by ROD ERICKSON MD ([id number]), news assignment editor DIEGO LINDSAY ([id number]) on 04/28/2017 5:28:42 PM Referred By: Confirmed By:RDO ERICKSON MD
== END 2017-04-25 15:51 | DRG 871 ==
LOC: ERS 04:42 → ERHOLD 08:51 → T4-A 14:47
PROVIDERS: ADMIT Family Medicine; ATTEND Family Medicine
DX: A41.89 Other specified sepsis (principal); J10.00 Influenza due to other identified influenza virus with unspecified type of pneumonia; J96.21 Acute and chronic respiratory failure with hypoxia; G10 Huntington's disease; E87.2 Acidosis; N30.00 Acute cystitis without hematuria; K21.9 Gastro-esophageal reflux disease without esophagitis; M06.9 Rheumatoid arthritis, unspecified; F32.9 Major depressive disorder, single episode, unspecified; F41.9 Anxiety disorder, unspecified; I10 Essential (primary) hypertension; B96.89 Other specified bacterial agents as the cause of diseases classified elsewhere; D64.9 Anemia, unspecified
CPT/HCPCS: 36415; 51701; 71045; 80053; 80202; 81003; 81015; 83605; 85025; 86850; 86900; 86901; 87040; 87077; 87086; 87899; 93005; 96361; 96365; 96367; 96374; 96375; A4216; A4353; G8978-GP-CK; G8979-GP-CJ; G8987-GO-CL; G8988-GO-CL; G8989-GO-CL; J0692; J1580; J1650; J2405; J3370; J7050

== ENCOUNTER 2017-07-09 06:30 | Inpatient (IN) | payer OTHER ==
[2017-07-09] MEDS ORDERED: Dextrose 50% Abboject 50 ML SYRINGE ONE (06:49)
[2017-07-09 06:53] LABS: Hemoglobin 12.8 g/dL (12.0-16.0); Mean Corpuscular HGB CONC 32.1 g/dL (32.0-36.0); Mean Corpuscular Hemoglobin 31.8 pg (27.0-31.0); Mean Corpuscular Volume 99.1 fl (81.0-99.0); Mean Platelet Volume 8.1 fL (7.4-10.4); Platelet Count 222 thou/uL (130-400); Red Blood Cell (RBC) Count 4.03 mill/uL (4.20-5.40); White Blood Cell (WBC) Count 6.2 thou/uL (4.8-10.8)
[2017-07-09 06:58] LABS: Bilirubin Negative (Negative); Blood, Urine Small (Negative); Clarity TURBID (Clear); Glucose, Urine (Dipstick) Negative (Negative); Leukocyte Small (Negative); Nitrite Negative (Negative); Protein, Urine (Dipstick) 30 mg/dL (Neg-Trace); Specific Gravity, Urine 1.017 (1.002-1.036); pH, Urine 6.5 (5.0-9.0)
[2017-07-09 07:00] LABS: Bacteria/HPF 4+ HPF (None Seen); Pathc Cast-AUWi Flag 1.59 (0-2.49); Squamous Epithelial 0-3 HPF (0-3); WBC/HPF 21-50 HPF (0-3)
[2017-07-09] MEDS ORDERED: fentaNYL Citrate/PF 2,000 MCG in Sodium Chloride 0.9% 60 ML IV SCH ×2 (07:00→10:34)
[2017-07-09 07:01] LABS: BHCG - Serum Negative (NEGATIVE); Pregs Control Background? CLEAR/WHITE (CLR/WHITE); Pregs Control Bar Appear? YES (CONTROL BAR)
[2017-07-09] MEDS ORDERED: Acetaminophen 650 MG Suppository ONE (07:02)
[2017-07-09] MEDS ORDERED: Acetaminophen 325 MG Suppository ONE (07:02)
[2017-07-09 07:06] LABS: pH, Arterial 7.28 (7.35-7.45)
[2017-07-09 07:07] LABS: Actual Bicarbonate (HCO3a) 29.4 mEq/L (22-26); Base Excess (BEa) 1.6 mEq/L (0 (+/-) 2.5); CO2 Tension 64.5 mmHg (35.0-45.0); Hemoglobin (Hb) 10.4 g/dL (12.0-16.0); O2 Tension (PaO2) 59.2 mmHg (80.0-100.0)
[2017-07-09 07:08] LABS: ALV-art Gradient 287.975 (0-20); Analyzer IN Cardio ER; Calcium, Ionized 1.2 mmol/L (1.12-1.30); Puncture Site RRA
[2017-07-09 07:10] LABS: ALT (SGPT) 27 U/L (8-55); AST (SGOT) 19 U/L (5-34); Albumin 3.4 g/dL (3.5-5.0); Alkaline Phosphatase 95 U/L (40-150); Anion Gap 10 mmol/L (10-20); BUN (Urea Nitrogen) 7 mg/dL (7.0-18.7); Bilirubin, Total 0.6 mg/dL (0.2-1.2); CK (CPK) 67 U/L (29-168); Calc. Creatinine Clearance 0 mL/min (70-130); Calcium 9.6 mg/dL (7.8-10.44); Carbon Dioxide 32 mmol/L (22-29); Chloride 94 mmol/L (98-107); Estimated GFR-MDRD Greater than 90; Globulin 2.6 g/dL (2.4-3.5); Glucose 86 mg/dL (70-105); Potassium 4.1 mmol/L (3.5-5.1); Sodium 132 mmol/L (136-145)
[2017-07-09 07:13] LABS: CKMB 1.4 ng/mL (0-6.6); Troponin I 0.074 ng/mL (< 0.028)
[2017-07-09] MEDS ORDERED: Albuterol Sulfate 2.5 mg/0.5 ml Neb ONE ×3 (07:14→07:15)
[2017-07-09] MEDS ORDERED: Albuterol Sulfate 2.5 mg/3 ml Neb ONE (07:15)
[2017-07-09 07:18] LABS: Hyaline Casts/LPF 0-3 HYALINE CAST LPF (0-3 Hyaline)
[2017-07-09 07:38] LABS: MDiff Complete? YES; Monocytes 1 % (0-10); PLT Morphology Comment Appears Adequate; Reflex for Review?? YES; Vacuoles SLIGHT
[2017-07-09 07:41] LABS: Band 59 % (5-11); Neutrophil 29 % (42-75)
[2017-07-09] MEDS ORDERED: Norepinephrine 8 MG/0.9% NS 250 ML ONE (07:41)
[2017-07-09 07:42] LABS: Lymphocytes 4 % (21-51)
[2017-07-09 07:43] LABS: Metamyelocyte 6 % (0-0)
--- NOTE | 2017-07-09 07:46 | RAD ---
CHEST 1 VIEW: HISTORY: A 47-year-old female with a history of respiratory insufficiency. Intubation on arrival. FINDINGS: There is an NG tube extending into the stomach. I cannot definitely demonstrate an endotracheal tube . Monitor leads overlie the chest. There are bilateral interstitial and alveolar opacity changes pr imarily in the perihilar regions. These appear more marked than on prior studies from March 2017 a nd raise concern for bilateral edema or atypical pneumonia. No peripheral confluent process. No ple ural effusion. IMPRESSION: Nasogastric tube in place. Endotracheal tube is not definitely demonstrated. Bilateral mostly alveo lar perihilar parenchymal changes, evidence for pulmonary edema versus atypical bilateral pneumonia o r pneumonitis. These changes are worse than on a March 2017 study. Continue short-term followup. POS: [facility]
[2017-07-09] MEDS ORDERED: Piperacillin/Tazobactam 4.5 GM in Sodium Chloride 0.9% 100 ML IVPB SCH (08:00)
--- NOTE | 2017-07-09 08:07 | RAD ---
SUPINE PORTABLE CHEST 1 VIEW: Date: 07/09/17 HISTORY: 47-year-old female with history of Teh[place]'s disease. [place] [facility] [place], while being i ntubated, became unresponsive and vomited. FINDINGS: NG tube, endotracheal tube, and right-sided central lines are in place. No pneumothorax or pleural ef fusion. Persistent bilateral dense perihilar alveolar parenchymal changes, concerning for pulmonary e fredi or bilateral pneumonia. No pneumothorax or pleural effusion. IMPRESSION: Stable extensive bilateral perihilar alveolar parenchymal changes. Life support tubes in place. Adrián nue short-term follow-up. POS: [facility]
--- NOTE | 2017-07-09 08:28 | PDOC.FPRHP ---
Addendum entered and electronically signed by James Miles MD 07/09/17 10:11 : [facility] and spoke with [facility]. State the patient has always been a full code Hospice patient. Will continue aggressive resuscitative measures. Original Note: - History of Present Illness Chief Complaint: Intubated, History of Present Illness: 47 yo with hx of huntining[place]'s disease comes in with cc of being obtunded and aspirating. Had to be [facility] by [facility]. Unable to obtain history from patient as she is sedated and intubated. No family by the bedside to get history. History obtained from ER Physician and nurses. Per ER pt was found to be obtunded and have a fever or 102 [facility] the [facility]. They called the patients daughter is the POA and said she wanted to revoke the DNR and do everything possible. EMS was then called. When they got there the patient was profusely vomiting and they witnessed the patient aspirate on a lot of the vomitus. She was then intubated and brought to the ER. Pt is unresponsive to pain. ED Course: Intubated on the vent, Started on Vanc and Zosyn, Started on Levophed drip running at 10 - Allergies/Adverse Reactions Allergies Allergy/AdvReac Type Severity Reaction Status Date / Time iodine Allergy Verified 04/22/17 06:07 levofloxacin [From Levaquin] Allergy Verified 04/22/17 06:07 - Home Medications Medication Instructions Recorded Confirmed Type ALButerol Sulfate [Ventolin Neb] 3 ml NEB Q6HR PRN 04/22/17 04/22/17 History Acetaminophen With Codeine 2 tablet PO Q6H 04/22/17 04/22/17 History [Tylenol with Codeine #3] Acetaminophen [Shake That Ache] 500 mg PO Q4HR PRN 04/22/17 04/22/17 History Benzonatate [Tessalon] 100 mg PO TID PRN 04/22/17 04/22/17 History Cyanocobalamin (Vitamin B-12) 1,000 mcg PO DAILY 04/22/17 04/22/17 History [B-12] DULoxetine [Cymbalta] 60 mg PO HS 04/22/17 04/22/17 History Ferrous Sulfate [Feosol] 325 mg PO BID 04/22/17 04/22/17 History Folic Acid [Folvite] 1 mg PO DAILY 04/22/17 04/22/17 History Gabapentin [Neurontin] 600 mg PO TID 04/22/17 04/22/17 History Lisinopril [Zestril] 10 mg PO DAILY 04/22/17 04/22/17 History Memantine HCl [Namenda] 5 mg PO DAILY 04/22/17 04/22/17 History Methotrexate Sodium [Trexall] 10 mg PO SEEPHYS 04/22/17 04/22/17 History OLANZapine [ZyPREXA] 15 mg PO HS 04/22/17 04/22/17 History Oxybutynin Chloride [Oxybutynin 5 mg PO DAILY 04/22/17 04/22/17 History Chloride ER] Pantoprazole [Protonix] 40 mg PO DAILY 04/22/17 04/22/17 History Promethazine [Phenergan] 25 mg PO Q6HR PRN 04/22/17 04/22/17 History clonazePAM [Klonopin] 0.5 mg PO DAILY 04/22/17 04/22/17 History rOPINIRole HCl [Ropinirole HCl] 0.25 mg PO HS 04/22/17 04/22/17 History tiZANidine HCl [Tizanidine HCl] 8 mg PO DAILY 04/22/17 04/22/17 History traMADol HCl [Tramadol HCl] 50 mg PO Q6H PRN 04/22/17 04/22/17 History Amoxicillin/Potassium Clav 500 mg PO Q12HR #12 tab 04/25/17 Rx [Augmentin] Oseltamivir [Tamiflu] 75 mg PO BID #3 cap 04/25/17 Rx - History PMHx: Mony disease, GERD, Anxiety, Depression, RA PSHx: Bilateral Cataracts FHx: Unable to obtain Social: Unable to obtain - Review of Systems ROS unobtainable: due to endotracheal tube - Vital signs BP: [70/42] HR: [127] RR: [16] Tmax: [100.8] Pox: [96]% on [Ventilation] Wt: [ 95] - Physical Exam -Constitutional: Intubated, No corneal reflex, didn't withdraw to pain but sedated HEENT: normocephalic and atraumatic, conjunctiva clear, no scleral icterus, normal nasal mucosa, oropharynx clear -HEENT: mucous membranes dry Neck: supple, trachea midline, no LAD, no JVD, no thyromegaly Heart: RRR, no murmurs/rubs/gallops, pulses present, no edema -Lungs: Severe rales, Crackles noted bilaterally. Some wheezing present as well. Lungs not very clear Abdomen: soft, non-tender, bowel sounds present, no masses/distention Musculoskeletal: normal structure -Neurological: corneal relfex not present, did not withdraw from pain but sedated. Unable to perform full neuro exam as patient is intubated and sedated. Skin: no rash/lesions, good turgor Heme/Lymphatic: no unusual bruising or bleeding, no purpura -Psychiatric: Unable to obtain. FMR H&P: Results - Labs Result Diagrams: 07/09/17 06:35 07/09/17 06:35 Lab results: WBC 6.2 thou/uL (4.8-10.8) 07/09/17 06:35 Hgb 12.8 g/dL (12.0-16.0) 07/09/17 06:35 Hct 39.9 % (36.0-47.0) 07/09/17 06:35 MCV 99.1 fl (81.0-99.0) H 07/09/17 06:35 Plt Count 222 thou/uL (130-400) 07/09/17 06:35 Band Neuts % (Manual) 59 % (5-11) H 07/09/17 06:35 ABG pH 7.28 (7.35-7.45) L 07/09/17 07:05 ABG pCO2 64.5 mmHg (35.0-45.0) H* 07/09/17 07:05 ABG pO2 59.2 mmHg (80.0-100.0) L 07/09/17 07:05 Sodium 132 mmol/L (136-145) L 07/09/17 06:35 Potassium 4.1 mmol/L (3.5-5.1) 07/09/17 06:35 Chloride 94 mmol/L (98-107) L 07/09/17 06:35 Carbon Dioxide 32 mmol/L (22-29) H 07/09/17 06:35 BUN 7 mg/dL (7.0-18.7) 07/09/17 06:35 Creatinine 0.64 mg/dL (0.6-1.1) 07/09/17 06:35 Glucose 86 mg/dL (70-105) 07/09/17 06:35 Lactic Acid 2.2 mmol/L (0.5-2.2) 07/09/17 06:35 Calcium 9.6 mg/dL (7.8-10.44) 07/09/17 06:35 Total Bilirubin 0.6 mg/dL (0.2-1.2) 07/09/17 06:35 AST 19 U/L (5-34) 07/09/17 06:35 ALT 27 U/L (8-55) 07/09/17 06:35 Alkaline Phosphatase 95 U/L (40-150) 07/09/17 06:35 Creatine Kinase 67 U/L (29-168) 07/09/17 06:35 CK-MB (CK-2) 1.4 ng/mL (0-6.6) 07/09/17 06:35 B-Natriuretic Peptide 1602.6 pg/mL (0-100) H 07/09/17 06:35 Serum Total Protein 6.0 g/dL (6.0-8.3) 07/09/17 06:35 Albumin 3.4 g/dL (3.5-5.0) L 07/09/17 06:35 Urine Ketones Negative mg/dL (Negative) 07/09/17 06:40 Urine Blood Small (Negative) H 07/09/17 06:40 Urine Nitrite Negative (Negative) 07/09/17 06:40 Ur Leukocyte Esterase Small (Negative) H 07/09/17 06:40 Urine RBC 7-10 HPF (0-3) H 07/09/17 06:40 Urine WBC 21-50 HPF (0-3) H 07/09/17 06:40 Ur Squamous Epith Cells 0-3 HPF (0-3) 07/09/17 06:40 Urine Bacteria 4+ HPF (None Seen) H 07/09/17 06:40 - EKG Interpretation EKG: Possible lateral infarct. Sinus Tachycardia - Radiology Interpretation Chest x-ray Status: image reviewed by me, report reviewed by me (Showed worsening pulmonary edema vs pneumonitis compared to previous exam in Mar 2017) FMR H&P: A/P - Problem List (1) Septic shock Current Visit: Yes Status: Acute Code(s): A41.9 - SEPSIS, UNSPECIFIED ORGANISM; R65.21 - SEVERE SEPSIS WITH SEPTIC SHOCK (2) Acute and chronic respiratory failure with hypoxia Current Visit: No Status: Resolved Code(s): J96.21 - ACUTE AND CHRONIC RESPIRATORY FAILURE WITH HYPOXIA (3) Influenza B Current Visit: No Status: Acute Code(s): J10.1 - FLU DUE TO OTH IDENT INFLUENZA VIRUS W OTH RESP MANIFEST (4) Aspiration pneumonia Current Visit: Yes Status: Acute Code(s): J69.0 - PNEUMONITIS DUE TO INHALATION OF FOOD AND VOMIT (5) Depression Current Visit: No Status: Acute Code(s): F32.9 - MAJOR DEPRESSIVE DISORDER, SINGLE EPISODE, UNSPECIFIED Qualifiers: Depression Type: unspecified Qualified Code(s): F32.9 - Major depressive disorder, single episode, unspecified (6) HTN (hypertension) Current Visit: No Status: Acute Code(s): I10 - ESSENTIAL (PRIMARY) HYPERTENSION Qualifiers: Hypertension type: essential hypertension Qualified Code(s): I10 - Essential (primary) hypertension (7) Mony's disease Current Visit: No Status: Acute Code(s): G10 - MONY'S DISEASE (8) Elevated troponin Current Visit: Yes Status: Acute Code(s): R74.8 - ABNORMAL LEVELS OF OTHER SERUM ENZYMES (9) Elevated brain natriuretic peptide (BNP) level Current Visit: Yes Status: Acute Code(s): R79.89 - OTHER SPECIFIED ABNORMAL FINDINGS OF BLOOD CHEMISTRY - Plan Acute Hypoxic Respitory Failure 2/2 Influenza B and Likely Aspiration PNA -pt intubated, Continue sedation. Will admit to ICU for continued ventilation -Consult Pulm Dr. Simon- Follow recs -Methylprednisolone -[facility] duone as patient very wheezy. Septic Shock 2/2 Influenza B, UTI and likely Aspiration PNA -Pt admitted due to being obtunded and intubated as she was witnessed to projectile vomit and aspirate a large amount by EMS -Tamiflu for Influenza -Vanc and Zosyn for Abx coverage for UTI and Aspiration PNA. Will get Urine and Blood cx and adjust abx as needed -Follow plan above for Aspiration and Breathing. - Lactic Acid 2.2. Will continue to follow. -NS @ 150/mls per hour. Pt hypotensive and has multiple sources of infection Hypotension -Levophed drip started will continue to titrate up -Hold all htn medications at this time Elevated Troponin -Will continue to Trend. -continuous tele monitoring -Some possible EKG changes. Tachycardic at this time. Continue fluids and levophed Elevated BNP -No hx of heart failure. BNP 1700. -Will continue to tx respiratory failure HTN -Hold home meds Mony's Dz -Continue home meds -Continue sx tx. Pt was a DNR and switched per daughter at outside facility. Pt has poor prognosis at this time. Will need to have family discussion at some point. FMR H&P: Upper Level - Pertinent history 47 yo WF PMH [place]tons disease. Presented from [place] after hospice was withdrawn by daughter with fever, nausea, and vomiting. No loss of pulse but in severe respiratory failure. No other history could be obtained due to AMS/intubation. Spoke with daughter who is flying back from [place] and will be here in 3-4 hours. Still wants all measures taken to keep her mother alive. - Pertinent findings Vent settings: Peak pressure 35-40 cm H2O, Plateau pressure 30 cm H2O, Pressure support 10/5, rate 16/min. PE: GEN: no responsive. intubated ENT: ET tube at 22 cm. MMM Pulm: Coarse breath sounds diffusely. mechanically ventilated CV: tachycardic, regular. influenza B positive UA concerning for UTI BNP elevated - Plan Date/Time: 07/09/17 5947 I, James Miles M.D., have evaluated this patient and agree with findings/plan as outlined by network intern resident. Pertinent changes/additions are listed here. 1. Acute hypoxic respiratory failure 2/2 Influenza B and Aspiration - Mechanically ventilate, Management per pulm. - Vanc, zosyn, and tamiflu - Consider CTA chest if stabilizes 2. Septic vs Cardiogenic Shock 2/2 #1. 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 Pending clinical progress in the next 2-3 hours, will discuss aggressive treatment vs. palliative measures with daughter once she arrives. Case discussed with Dr. Weston. Attending Addendum - Attending Addendum Date/Time: 07/09/17 5826 I personally evaluated the patient and discussed the management with Dr. Holm/ Jd. I agree with the History, Examination, Assessment and Plan documented above with any addition or exceptions noted below. Agree with above. Please see dictated H&P dated 07/09/17 under my name for further details.
[2017-07-09 08:46] LABS: Actual Bicarbonate (HCO3a) 28.9 mEq/L (22-26); CO2 Tension 73.6 mmHg (35.0-45.0); O2 Tension (PaO2) 39.5 mmHg (80.0-100.0); pH, Arterial 7.21 (7.35-7.45)
[2017-07-09 08:47] LABS: Base Excess (BEa) -0.1 mEq/L (0 (+/-) 2.5); Hemoglobin (Hb) 10.1 g/dL (12.0-16.0)
[2017-07-09 08:48] LABS: Analyzer IN Cardio ER; Calcium, Ionized 1.2 mmol/L (1.12-1.30); Puncture Site RFA
[2017-07-09 09:06] LABS: Actual Bicarbonate (HCO3a) 25.9 mEq/L (22-26); CO2 Tension 54.4 mmHg (35.0-45.0); Hematocrit-ABG 34.2 % (36.0-47.0); Hemoglobin (Hb) 9.7 g/dL (12.0-16.0); O2 Tension (PaO2) 72.9 mmHg (80.0-100.0); pH, Arterial 7.29 (7.35-7.45)
[2017-07-09 09:07] LABS: Analyzer IN Cardio ER; Calcium, Ionized 1.1 mmol/L (1.12-1.30); Puncture Site A-LINE
[2017-07-09 09:57] LABS: Troponin I 0.247 ng/mL (< 0.028)
[2017-07-09] MEDS ORDERED: Ondansetron ODT 4 MG TAB SL PRN (10:00)
[2017-07-09] MEDS ORDERED: Ondansetron HCl/PF 4 MG/2 ML Vial IVP PRN ×2 (10:00→10:20)
[2017-07-09] MEDS ORDERED: Acetaminophen 650 MG Suppository PR PRN ×2 (10:01→10:20)
[2017-07-09] MEDS ORDERED: Norepinephrine 8 MG/250 ML BAG IVPB PRN (10:02)
--- NOTE | 2017-07-09 10:02 | HP ---
This is an attending history and physical. For full history and physical details please Dr. Ramiro Holm's digital H&P. Portions of the history and physical have been repeated by myself and I am in agreement with the assessment and plan as documented. In brief, this patient is a 47-year-old white female with history of Greenwood' s disease who presents to the emergency room with obtundation and respiratory distress. Per EMS and ER records, patient was in her normal state of health at her half-way until last night when she developed a fever to 102 Fahrenheit as well as a productive cough. Per ERMD report, patient had DNR status revoked by daughter (AMERICO) at that time and EMS was contacted. However, per half-way , the patient has always been a full code. Either way, when EMS arrived, they witnessed patient vomit and aspirate a large quantity of material. She was intubated and transferred to the ER for higher level of care. Upon arrival to ER , patient noted to be hypotensive and was given 3 L bolus as well as started on pressor support. No other history obtained due to patient being intubated. Physical exam pertinent for sluggish pupils, cool extremities, weak and thready pulses. Her lung exam is pertinent for diffuse rhonchi and rales and intermittent wheezes. Course breath sounds on vent. Heart tachycardic but regular rhythm. Abdomen soft and non distended. Pulse 112, BP 50/30 initially on 20 of Levophed. RR 18 on SIMV with sats 85%. Labs significant for WBC 6.2 with 59% bands and small percentage immature forms , ABG with CO2 64, O2 59, Base excess 1.6, A-a gradient 287. UA positive for 4+ bacteria, increased WBC, RBC, and positive LE. CXR shows possible bilateral atypical pneumonia versus pneumonitis. Lactate 2.2. Influenza B positive. Assessment: 1. Septic Shock- likely 2/2 mixture UTI, aspiration pneumonitis, and Flu B. Therapy with Vanc and Zosyn, and Tamiflu. Checking PCT. S/p 3L bolus, continue IVF and pressor support as needed to MAP >65. Cultures obtained in ER. 2. Hypoxic hypercapnic respiratory failure, acute- 2/2 septic shock as well as the aspiration. On vent, Pulm on board. Methyprednisolone started and continue for now. Repeat CXR in AM. 3. Aspiration Pneumonitis- as above. Abx, cultures,vent support as needed. 4. UTI- patient has history of similar 2/2 her chronic illness and nonambulatory status. Urine cx. Abx as above. 5. Influenza B- Tamiflu as could be contributing to symptom onset and present illness. 6. Greenwood's Disease- resume home meds once off vent and sedation. 75 minutes critical care time involved in the care of patient. DAGMARD
[2017-07-09] MEDS ORDERED: Ventilator Sedation Protocol 1 EACH FS SCH ×2 (10:15→10:20)
[2017-07-09] MEDS ORDERED: CCU Electrolyte Replacement 1 EACH IVPB ONE (10:20)
[2017-07-09] MEDS ORDERED: Norepinephrine 8 MG/0.9% NS 250 ML IVPB PRN (10:20)
[2017-07-09] MEDS ORDERED: Lacri-Lube Opth Oint 3.5 GM TUBE EA EYE PRN (10:20)
[2017-07-09] MEDS ORDERED: Lorazepam 2 MG/ML VIAL SLOW IVP PRN (10:34)
[2017-07-09] MEDS ORDERED: DISCONTINUE PREVIOUS NARCOTIC PAIN MEDICATIONS AND BENZODIAZEPINES FS SCH (10:34)
[2017-07-09] MEDS ORDERED: Fentanyl BOLUS 250 ML IVPB PRN (10:34)
[2017-07-09] MEDS ORDERED: Morphine 4 MG/ML VIAL SLOW IVP PRN (10:34)
[2017-07-09] MEDS ORDERED: Propofol BOLUS 1,000 MG/100 ML VIAL IV PRN (10:34)
[2017-07-09] MEDS ORDERED: Potassium Chloride 20 MEQ TAB PO PRN (10:35)
[2017-07-09] MEDS ORDERED: Magnesium 2 GM/NS 0.9% 100 ML 2 GM in Premix Bag 1 BAG IVPB PRN (10:35)
[2017-07-09] MEDS ORDERED: CCU ELECTROLYTE REPLACEMENT PROTOCOL FS PRN (10:35)
[2017-07-09] MEDS ORDERED: Potassium Chloride 40 MEQ in Sodium Chloride 0.9% 250 ML 250 ML IVPB PRN (10:35)
[2017-07-09] MEDS ORDERED: Magnesium Oxide 400 MG TAB PO PRN (10:35)
[2017-07-09] MEDS ORDERED: Potassium Phosphate 12 MMOL in Sodium Chloride 0.9% 250 ML 250 ML IV PRN (10:35)
[2017-07-09] MEDS ORDERED: Potassium Phosphate 9 MMOL in Sodium Chloride 0.9% 100 ML IVPB PRN (10:35)
[2017-07-09] MEDS ORDERED: Potassium Phosphate 15 MMOL in Sodium Chloride 0.9% 250 ML 250 ML IV PRN (10:35)
--- NOTE | 2017-07-09 10:48 | CON ---
DATE OF CONSULTATION: 07/09/2017 This is 45 minutes critical care time CONSULTING PHYSICIAN: [facility] REASON FOR CONSULTATION: Acute critical care management. HISTORY OF PRESENT ILLNESS: This is a 47-year-old female who is a group home patient. She has the unfortunate diagnosis of Parke's chorea. I am told that she was on hospice care. Originally, I was told she was DNR, but now I found out that she was actually not DNR while in hospice. She came via EMS today after apparently aspirating. She was also obtunded. The EMS crew intubated her en ro patsy to the hospital. There were multiple discussions between the ER doctors and daughter who stated she wanted everything done. My understanding is that she is en route to this facility from [place]. PAST MEDICAL HISTORY: 1. Parke's chorea 2. Gastroesophageal reflux. 3. Anxiety. 4. Depression. 5. Rheumatoid arthritis. PAST SURGICAL HISTORY: Cataract surgery. FAMILY MEDICAL HISTORY: Not known. SOCIAL HISTORY: Apparently does not smoke. Does not consume alcohol. MEDICATIONS PRIOR TO ADMISSION: Albuterol, acetaminophen with codeine, Tessalon Perles, vitamin B12, Cymbalta, iron sulfate, Folvite, Neurontin, Zestril, Namenda, Trexall, Zyprexa, oxybutynin, Protonix , Phenergan, Klonopin, ropinirole, tizanidine, tramadol, Augmentin, and Tamiflu. REVIEW OF SYSTEMS: Cannot be obtained as the patient is currently on mechanical ventilation. PHYSICAL EXAMINATION: VITAL SIGNS: Temperature 100.8, pulse 130, blood pressure 103/53, O2 sat 97%, respiratory rate 16. She is currently on Levophed drip at 20 mcg per minute. GENERAL: She will wake up and nod her head, shake her head to questions. HEENT: Pupils react. Sclerae icteric. Oropharynx clear. NECK: No JVD. LUNGS: Coarse rhonchi. CARDIOVASCULAR: S1 and S2 tachycardic. ABDOMEN: Soft, obese, nontender, nondistended. EXTREMITIES: No clubbing, cyanosis, or edema. NEUROLOGIC: Situation is difficult to assess right now because she is sedated. LABORATORY DATA AND IMAGING DATA: White blood cell count 6.2, hematocrit 39.9, platelet count 222. PH 7.29, pCO2 of 54, pO2 72, SIMV rate 16, tidal volume 450, PEEP 5, pressure support 10, FiO2 85%. Sodium 132, potassium 4.1, chloride 94, CO2 32, BUN 7, creatinine 0.6, glucose 90, troponin 0.2. Pro calcitonin level 1.2. Urinalysis showed 21-50 white blood cells. Chest x-ray shows a right perihila r infiltrate. ASSESSMENT: 1. Septic shock secondary to aspiration pneumonitis. 2. Aspiration pneumonitis. 3. Acute hypoxic respiratory failure requiring mechanical ventilation. 4. History of Parke's chorea. 5. Urinary tract infection. PLAN: 1. The patient will be kept on mechanical ventilation until the family situation is more sorted out. She has been started on piperacillin and vancomycin for antibiotic coverage. I do not think we nee d to double cover for Pseudomonas at this time. She will remain on vasopressors. She needs to be hy drated, keep her CVP around 10. She was started on methylprednisolone, which I really see no issue w ith it. 2. I have adjusted mechanical ventilation to pressure control ventilation as she is ventilating much better on that.
[2017-07-09 10:52] LABS: Lactic Acid 2.5 mmol/L (0.5-2.2)
[2017-07-09] MEDS ORDERED: Oseltamivir 6 MG/ML ORAL SUSP PO SCH ×2 (11:15→21:00)
[2017-07-09] MEDS: Sodium Chloride 0.9% 1,000 ML IV SCH ×5 (11:46→18:06)
[2017-07-09] MEDS: Vancomycin HCl 1.5 GM in Sodium Chloride 0.9% 250 ML 300 ML IVPB SCH (12:42)
[2017-07-09] MEDS ORDERED: Enoxaparin Sodium 30 MG/0.3 ML SYRINGE SC SCH (13:00)
[2017-07-09 13:14] LABS: Troponin I 0.083 ng/mL (< 0.028)
[2017-07-09] MEDS: Piperacillin/Tazobactam 3.375 GM in Sodium Chloride 0.9% 100 ML IVPB SCH ×2 (14:34→20:52)
[2017-07-09] MEDS: Propofol 1,000 MG/100 ML VIAL IV PRN (16:51)
[2017-07-09] MEDS ORDERED: Acetaminophen 650 MG in Premix Bag 1 BAG IVPB PRN (18:01)
[2017-07-09] MEDS: Pantoprazole 40 MG VIAL IVP SCH (20:53)
[2017-07-09] MEDS: Oseltamivir 6 MG/ML ORAL SUSP PER TUBE SCH (20:53)
[2017-07-10] MEDS: Vancomycin HCl 1.5 GM in Sodium Chloride 0.9% 250 ML 300 ML IVPB SCH ×3 (00:53→23:56)
[2017-07-10] MEDS: Sodium Chloride 0.9% 1,000 ML IV SCH ×5 (00:55→20:30)
[2017-07-10] MEDS: Piperacillin/Tazobactam 3.375 GM in Sodium Chloride 0.9% 100 ML IVPB SCH ×4 (02:55→20:26)
[2017-07-10 04:48] LABS: Anion Gap 11 mmol/L (10-20); BUN (Urea Nitrogen) 7 mg/dL (7.0-18.7); Calc. Creatinine Clearance 180 mL/min (70-130); Calcium 8.3 mg/dL (7.8-10.44); Carbon Dioxide 25 mmol/L (22-29); Chloride 108 mmol/L (98-107); Estimated GFR-MDRD Greater than 90; Glucose 141 mg/dL (70-105); Sodium 141 mmol/L (136-145)
[2017-07-10 04:57] LABS: Hemoglobin 10.2 g/dL (12.0-16.0); MDiff Complete? YES; Mean Corpuscular Hemoglobin 31.9 pg (27.0-31.0); Mean Corpuscular Volume 96.5 fl (81.0-99.0); Mean Platelet Volume 8.6 fL (7.4-10.4); Platelet Count 158 thou/uL (130-400); RBC Distribution Width 15.9 % (11.5-14.5); Red Blood Cell (RBC) Count 3.19 mill/uL (4.20-5.40); White Blood Cell (WBC) Count 12.8 thou/uL (4.8-10.8)
[2017-07-10 04:58] LABS: Band 38 % (5-11); Lymphocytes 4 % (21-51); Neutrophil 58 % (42-75)
[2017-07-10] MEDS: Potassium Chloride 40 MEQ in Premix Bag 1 BAG IVPB PRN (05:01)
[2017-07-10] MEDS: Propofol 1,000 MG/100 ML VIAL IV PRN (05:16)
[2017-07-10 07:23] LABS: Actual Bicarbonate (HCO3a) 23.5 mEq/L (22-26); Base Excess (BEa) 0.1 mEq/L (0 (+/-) 2.5); CO2 Tension 33.5 mmHg (35.0-45.0); Hematocrit-ABG 28.3 % (36.0-47.0); Hemoglobin (Hb) 9.6 g/dL (12.0-16.0); O2 Tension (PaO2) 69.7 mmHg (80.0-100.0); pH, Arterial 7.47 (7.35-7.45)
[2017-07-10 07:24] LABS: ALV-art Gradient 173.625 (0-20); Calcium, Ionized 1.2 mmol/L (1.12-1.30); Puncture Site LBA
--- NOTE | 2017-07-10 07:37 | PDOC.FM ---
- Subjective Subjective: CC: Intubated and unable to verbally communicate. HPI: Nursing informed primary team patient failed spontaneous breathing trial. Patient is arousable and can nod yes/no to basic questions. Spoke with family at length last night and explained current status of the patient. They were appreciative. - Objective MAR Reviewed: Yes Vital Signs & Weight: Vital Signs (12 hours) Temp Pulse Resp BP Pulse Ox 07/10/17 06:43 112 H 95/60 07/10/17 06:41 113 H 16 96 07/10/17 05:56 16 07/10/17 04:00 98.9 F 16 07/10/17 03:12 113 H 97 07/10/17 02:00 16 07/10/17 00:00 99.0 F 16 07/09/17 23:04 117 H 144/75 H 07/09/17 23:03 96 07/09/17 22:00 98.5 F 16 07/09/17 20:00 100.0 F H 16 07/09/17 19:39 100.0 F H 109 H 16 96 Weight Weight 94.7 kg Most Recent Monitor Data Heart Rate from ECG 111 NIBP 106/65 NIBP BP-Mean 72 Respiration from ECG 20 SpO2 95 I&O: 07/09/17 07/10/17 07/11/17 06:59 06:59 06:59 Intake Total 5275.7 Output Total 3485 Balance 1790.7 Result Diagrams: 07/10/17 04:00 07/10/17 04:00 Radiology Reviewed by me: Yes (no interval change ) <James Miles - Last Filed: 07/10/17 10:23> - Objective Vital Signs & Weight: Vital Signs (12 hours) Temp Pulse Resp BP Pulse Ox 07/10/17 06:43 112 H 95/60 07/10/17 06:41 113 H 16 96 07/10/17 05:56 16 07/10/17 04:00 98.9 F 16 07/10/17 03:12 113 H 97 07/10/17 02:00 16 07/10/17 00:00 99.0 F 16 07/09/17 23:04 117 H 144/75 H 07/09/17 23:03 96 Weight Weight 94.7 kg Most Recent Monitor Data Heart Rate from ECG 111 NIBP 106/65 NIBP BP-Mean 72 Respiration from ECG 20 SpO2 95 I&O: 07/09/17 07/10/17 07/11/17 06:59 06:59 06:59 Intake Total 5275.7 Output Total 3485 Balance 1790.7 Result Diagrams: 07/10/17 04:00 07/10/17 04:00 <WestonBarrington Stanley Hank - Last Filed: 07/10/17 10:42> Phys Exam - Physical Examination Constitutional: NAD HEENT: moist MMs, sclera anicteric Respiratory: no wheezing coarse breath/ventalator sounds throughtout Cardiovascular: no significant murmur tachycardic but regular rhythm Gastrointestinal: soft, non-tender Musculoskeletal: edema present (trace) unable to assess due to sedation Skin: no rash, normal turgor <James Miles - Last Filed: 07/10/17 10:23> Dx/Plan (1) Acute and chronic respiratory failure with hypoxia Code(s): J96.21 - ACUTE AND CHRONIC RESPIRATORY FAILURE WITH HYPOXIA Status: Resolved Plan: - vent management per Pulm/CCU, remains hypoxic with elevated A-a gradient. - CXR unchanged. - FIO2 requirement has decreased as has pressure support. - making improvements - tube feeds started by Pulm. (2) Septic shock Code(s): A41.9 - SEPSIS, UNSPECIFIED ORGANISM; R65.21 - SEVERE SEPSIS WITH SEPTIC SHOCK Status: Resolved Plan: Vanc/Zosyn day 2. BP remains low but CVP is adequate. Urine output appropriate - continue IV fluids and antibiotics - vanc trough ordered. (3) Influenza B Code(s): J10.1 - FLU DUE TO OTH IDENT INFLUENZA VIRUS W OTH RESP MANIFEST Status: Acute Plan: Tamiflu day 2 - ventilator support. (4) Aspiration pneumonia Code(s): J69.0 - PNEUMONITIS DUE TO INHALATION OF FOOD AND VOMIT Status: Acute QualifierTitle: Aspiration pneumonia type: due to vomit Laterality: unspecified laterality Lung location: unspecified part of lung Qualified Code(s): J69.0 - Pneumonitis due to inhalation of food and vomit Plan: Pneumonia vs pneumonitis. - continue antibiotics - vent per pulm (5) Elevated brain natriuretic peptide (BNP) level Code(s): R79.89 - OTHER SPECIFIED ABNORMAL FINDINGS OF BLOOD CHEMISTRY Status : Acute Plan: TTE ordered, f/u results. (6) Elevated troponin Code(s): R74.8 - ABNORMAL LEVELS OF OTHER SERUM ENZYMES Status: Acute Plan: trended down. (7) HTN (hypertension) Code(s): I10 - ESSENTIAL (PRIMARY) HYPERTENSION Status: Acute QualifierTitle: Hypertension type: essential hypertension Qualified Code( s): I10 - Essential (primary) hypertension Plan: holding antihypertensives at this time. (8) [place]'s disease Code(s): G10 - MONY'S DISEASE Status: Acute Plan: If patient improves and can be extubated, will discuss [facility] care goals with patient and family. (9) Hypokalemia Code(s): E87.6 - HYPOKALEMIA Status: Acute Plan: replace per protocol. Magnesium low as well. will replace per protocol. Will likely need multiple electrolyte replacements as she diureses fluid from sepsis resuscitations. <James Miles W - Last Filed: 07/10/17 10:23> (1) Septic shock Code(s): A41.9 - SEPSIS, UNSPECIFIED ORGANISM; R65.21 - SEVERE SEPSIS WITH SEPTIC SHOCK Status: Resolved (2) Acute and chronic respiratory failure with hypoxia Code(s): J96.21 - ACUTE AND CHRONIC RESPIRATORY FAILURE WITH HYPOXIA Status: Resolved (3) Influenza B Code(s): J10.1 - FLU DUE TO OTH IDENT INFLUENZA VIRUS W OTH RESP MANIFEST Status: Acute (4) Aspiration pneumonia Code(s): J69.0 - PNEUMONITIS DUE TO INHALATION OF FOOD AND VOMIT Status: Acute Qualifiers: Aspiration pneumonia type: due to vomit Laterality: unspecified laterality Lung location: unspecified part of lung Qualified Code(s): J69.0 - Pneumonitis due to inhalation of food and vomit (5) Depression Code(s): F32.9 - MAJOR DEPRESSIVE DISORDER, SINGLE EPISODE, UNSPECIFIED Status : Acute Qualifiers: Depression Type: unspecified Qualified Code(s): F32.9 - Major depressive disorder, single episode, unspecified (6) HTN (hypertension) Code(s): I10 - ESSENTIAL (PRIMARY) HYPERTENSION Status: Acute Qualifiers: Hypertension type: essential hypertension Qualified Code(s): I10 - Essential (primary) hypertension (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 Miles. I agree with the History, Examination, Assessment and Plan documented above with any addition or exceptions noted below. Patient continues to be critically ill but is definitely more stable this morning. She continues to be in hypoxic respiratory failure, though her numbers have improved with decreasing FiO2. Vent management per Critical Care/Pulm. Her BP is improved off pressor support, and CVP is at goal. Continue IVF while intubated. UOP adequate and no evidence of end organ damage from her initial septic shock presentation. PCT reassuring. Continue antibiotics and await cultures. Vancomycin continues and will need trough checked to ensure not at toxic levels. Family meeting later today. <Barrington Weston R - Last Filed: 07/10/17 10:42>
--- NOTE | 2017-07-10 07:59 | PRG ---
DATE OF SERVICE: 07/10/2017 Thirty-five minutes critical care time. The patient remains intubated on mechanical ventilation. She will wake up and follow commands. PHYSICAL EXAMINATION: VITAL SIGNS: Temperature is 98.9, pulse 111, blood pressure 106/65. 24 hour intake 5275, output 376 0. HEENT: Unremarkable. NECK: No JVD. LUNGS: Coarse rhonchi. CARDIOVASCULAR: S1, S2 regular. ABDOMEN: Soft, nontender. EXTREMITIES: No edema. LABORATORY DATA: White blood cell count 12.8, hematocrit 30.8, platelet count 158, pH 7.47, pCO2 of 33, pO2 69 on pressure control ventilation rate 16 inspiratory time 1.2 seconds, inspiratory pressure 20 and a PEEP of 5, FIO2 40%. Sodium 141, potassium 3, chloride 108, CO2 25, BUN 7, creatinine 0.6, glucose 141. Chest x-ray shows perihilar infiltrates. ASSESSMENT: 1. Septic shock secondary to aspiration pneumonia - she has clinically improved after hydration and has been successfully weaned off her vasopressors. 2. Acute respiratory failure requiring mechanical ventilation. 3. History of [place]'s chorea. PLAN: 1. She was tried on spontaneous ventilation this morning, but demonstrated a high frequency to tidal volume ratio indicating that she was at high risk for failure if extubated. 2. Continue IV antibiotics. 3. Adjust mechanical ventilation rates. 4. Gatzke enteral tube feeds. 5. Replace potassium. 6. Follow up on echocardiogram. 7. Hopefully move towards extubation in the next 48 hours. 8. Continue to follow labs. 9. Reduce steroid dose.
[2017-07-10] MEDS ORDERED: Metoclopramide HCl 10 MG/2 ML VIAL IVP PRN (08:27)
[2017-07-10] MEDS: Oseltamivir 6 MG/ML ORAL SUSP PER TUBE SCH ×2 (08:39→20:28)
[2017-07-10] MEDS: Enoxaparin Sodium 40 MG/0.4 ML SYRINGE SC SCH (08:39)
[2017-07-10] MEDS ORDERED: Pantoprazole 40 MG VIAL IVP SCH (09:00)
[2017-07-10] MEDS ORDERED: Enoxaparin Sodium 30 MG/0.3 ML SYRINGE SC SCH (09:00)
--- NOTE | 2017-07-10 09:03 | RAD ---
PORTABLE CHEST: Date: 07/10/17 HISTORY: Respiratory distress. COMPARISON: Prior day's study. FINDINGS: Heart size is within normal limits for portable technique. Endotracheal and NG tubes are in satisfact ory position. Right-sided central line unchanged in position. Parahilar lung markings are minimally improved as compared to the prior examination. IMPRESSION: Parahilar alveolar opacity most suggestive of pulmonary edema, minimally improved as compared to the prior study. POS: SHANA
[2017-07-10] MEDS: Azithromycin 250 MG in Sodium Chloride 0.9% 250 ML 250 ML IVPB SCH (11:07)
[2017-07-10] MEDS: Pantoprazole 40 MG VIAL IVP SCH (20:27)
[2017-07-10 23:44] LABS: Vancomycin, Trough 19.8 ug/mL
[2017-07-11] MEDS: Piperacillin/Tazobactam 3.375 GM in Sodium Chloride 0.9% 100 ML IVPB SCH ×4 (02:07→20:01)
[2017-07-11 04:53] LABS: Anion Gap 12 mmol/L (10-20); BUN (Urea Nitrogen) 10 mg/dL (7.0-18.7); Calc. Creatinine Clearance 164 mL/min (70-130); Calcium 9.1 mg/dL (7.8-10.44); Carbon Dioxide 22 mmol/L (22-29); Chloride 113 mmol/L (98-107); Estimated GFR-MDRD Greater than 90; Glucose 109 mg/dL (70-105); Magnesium 2.1 mg/dL (1.6-2.6); Sodium 144 mmol/L (136-145)
[2017-07-11] MEDS: Sodium Chloride 0.9% 1,000 ML IV SCH ×2 (05:07→08:58)
[2017-07-11] MEDS: Potassium Chloride 40 MEQ in Premix Bag 1 BAG IVPB PRN (05:07)
[2017-07-11 05:11] LABS: Band 20 % (5-11); Hemoglobin 9.6 g/dL (12.0-16.0); Lymphocytes 6 % (21-51); MDiff Complete? YES; Mean Corpuscular Hemoglobin 32.1 pg (27.0-31.0); Mean Corpuscular Volume 97.3 fl (81.0-99.0); Mean Platelet Volume 8.5 fL (7.4-10.4); Monocytes 4 % (0-10); Neutrophil 70 % (42-75); Platelet Count 133 thou/uL (130-400)
[2017-07-11 07:26] LABS: Actual Bicarbonate (HCO3a) 21.7 mEq/L (22-26); CO2 Tension 37.7 mmHg (35.0-45.0); O2 Tension (PaO2) 136.6 mmHg (80.0-100.0); pH, Arterial 7.38 (7.35-7.45)
[2017-07-11 07:27] LABS: ALV-art Gradient 101.475 (0-20); Base Excess (BEa) -3.1 mEq/L (0 (+/-) 2.5); Calcium, Ionized 1.3 mmol/L (1.12-1.30); Hematocrit-ABG 29.9 % (36.0-47.0); Puncture Site RRA
--- NOTE | 2017-07-11 08:05 | RAD ---
PORTABLE UPRIGHT FRONTAL CHEST RADIOGRAPH: Date: 07-11-17 History: On ventilator. Follow up evaluation. Comparison: 07-10-17 FINDINGS: The endotracheal tube, nasogastric tube, right subclavian central venous catheter remain in place and unchanged in position. There is increased interstitial and alveolar opacities within the lungs bilat erally in a perihilar distribution which appears slightly increased from the prior exam. Findings may be related to asymmetric pulmonary edema. However, an atypical infectious process is a possibility. There is suggestion of small left pleural effusion. Cardiac silhouette is magnified by projection. No other interval change. IMPRESSION: 1. Increased perihilar and interstitial and alveolar opacities which may be related to either asymmet sudha pulmonary edema or infectious process. Continued follow up to resolution is recommended. 2. Small left pleural effusion. POS: YANETH
--- NOTE | 2017-07-11 08:23 | PDOC.PULCC ---
CCU Progress Note: Subj/Obj - Subjective Date: 07/11/17 Time: 08:21 Narrative: Awake, follows - Objective Allergies/Adverse Reactions: Allergies Allergy/AdvReac Type Severity Reaction Status Date / Time iodine Allergy Verified 04/22/17 06:07 levofloxacin [From Levaquin] Allergy Verified 04/22/17 06:07 MAR Reviewed: Yes Vital Signs and I&O: Vital Signs Temp 98.4 F 07/11/17 04:00 Pulse 98 07/11/17 07:06 Resp 11 L 07/11/17 07:03 BP 112/58 L 07/11/17 07:06 Pulse Ox 99 07/11/17 07:03 Intake & Output 07/10/17 07/11/17 07/11/17 18:59 06:59 18:59 Intake Total 2375 1729.9 Output Total 910 655 Balance 1465 1074.9 Weight 208 lb 12.444 oz 224 lb 6.889 oz Intake: Intake, IV Amount 2275 1699.9 Azithromycin 250 mg In 250 Sodium Chloride 0.9% 250 ML 250 ml @ 250 mls/hr IVPB 0900 [facility] Rx#: [id number] Piperacillin/Tazobactam 3 100 .375 gm In Sodium Chloride 0.9% 100 ml @ 200 mls/hr IVPB 0200,0800 ,1400,2000 [facility] Rx#: [id number] Piperacillin/Tazobactam 4 100 .5 gm In Sodium Chloride 0.9% 100 ml @ 200 mls/hr IVPB NOW [facility] Rx#:[id number] Propofol 1000 mg (See 18 24.7 Protocol) IV INF PRN Rx#: [id number] Sodium Chloride 0.9% 1, 1507 1628 000 ml @ 150 mls/hr IV . Q6H40M [facility] Rx#:[id number] Vancomycin HCl 1.5 gm In 300 Sodium Chloride 0.9% 250 ML 300 ml @ 150 mls/hr IVPB 1200,2359 [facility] Rx#: [id number] fentaNYL Citrate/PF 2,000 47.2 mcg In Sodium Chloride 0 .9% 60 ml @ Per Protocol IV INF [facility] Rx#:[id number] Tube Irrigant 100 30 Output: Gastric Drainage 250 100 Output, Silverio 660 555 Other: Voiding Method Indwelling Catheter Indwelling Catheter # Bowel Movements 1 1 Vent Setting: Resp: Vent Adult Start: 07/09/17 10: 18 Freq: CONTINUOUS Status: Active Protocol: Document 07/11/17 07:06 JOSE (Rec: 07/11/17 07:07 JOSE [id number]) RT: Ventilator Ventilator Checks Ventilator Status Mode SIMV Mandatory Breath Type Pressure RR-Set 10 RR-Spontaneous TV Set TV- Delivered 433 TV- Spontaneous FIO2 40 PEEP (cm H2O) 5 PEEP High (BiLevel) PEEP Low (BiLevel) Pressure Support 12 PIP (cmH2O) P Plat Lung Compliance I-Time (seconds) 1.2 Peak Flow Rate (L/min) Breath Trigger Pressure Spontaneous Breathing Test: done (passed) Lines (incl Aterial, CVC, PICC+Insertion date): Right IJ CCU Progress Note: Exam - Physical Exam Constitutional: NAD HEENT: PERRLA, sclera anicteric Neck: no nodes, no JVD Cardiovascular: RRR Respiratory: clear to auscultation bilaterally Gastrointestinal: soft, non-tender Musculoskeletal: no edema Neurological: non-focal, normal sensation, moves all 4 limbs Psychiatric: normal affect, A&O x 3 Skin: no rash CCU Progress Note: Data - Labs Result Diagrams: 07/11/17 04:28 07/11/17 04:28 - ABG Interpretation ABG Results: ABG pH 7.38 (7.35-7.45) 07/11/17 07:00 ABG pCO2 37.7 mmHg (35.0-45.0) 07/11/17 07:00 ABG O2 Sat Calc/Miriam 98.8 % (94.0-100.0) 07/11/17 07:00 ABG Base Excess -3.1 mEq/L (0 (+/-) 2.5) L 07/11/17 07:00 Interpretation: normal - Radiology Interpretation Chest x-ray Status: image reviewed by me (Right lung infiltrate) CCU Progress Note: A/P - Problems (1) Aspiration pneumonia Current Visit: Yes Status: Acute Code(s): J69.0 - PNEUMONITIS DUE TO INHALATION OF FOOD AND VOMIT Qualifiers: Aspiration pneumonia type: due to vomit Laterality: unspecified laterality Lung location: unspecified part of lung Qualified Code(s): J69.0 - Pneumonitis due to inhalation of food and vomit (2) Septic shock Current Visit: Yes Status: Resolved Code(s): A41.9 - SEPSIS, UNSPECIFIED ORGANISM; R65.21 - SEVERE SEPSIS WITH SEPTIC SHOCK (3) [place]'s disease Current Visit: Yes Status: Acute Code(s): G10 - MONY'S DISEASE (4) Influenza B Current Visit: Yes Status: Acute Code(s): J10.1 - FLU DUE TO OTH IDENT INFLUENZA VIRUS W OTH RESP MANIFEST (5) Acute and chronic respiratory failure with hypoxia Current Visit: Yes Status: Acute Code(s): J96.21 - ACUTE AND CHRONIC RESPIRATORY FAILURE WITH HYPOXIA - Time Spent with Patient Time (minutes): 30 (cc time) - Plan Plan: Extubate Cont IV ABX start diet denise silverio
--- NOTE | 2017-07-11 08:25 | PDOC.FM ---
- Subjective Subjective: CC: Sore throat HPI: Patient able to communicate via writing this morning. Wanted to know where her daughter was and complained of sore throat. RT stated plan was for extubation today. - Objective MAR Reviewed: Yes Vital Signs & Weight: Vital Signs (12 hours) Temp Pulse Resp BP Pulse Ox 07/11/17 07:06 98 112/58 L 07/11/17 07:03 92 11 L 99 07/11/17 06:00 12 07/11/17 04:00 98.4 F 11 L 07/11/17 03:30 92 07/11/17 03:29 100 07/11/17 02:00 32 H 07/11/17 00:00 98.3 F 11 L 07/10/17 22:26 96 132/77 07/10/17 22:25 100 07/10/17 22:00 12 Weight Admit Weight 97.069 kg Weight 101.8 kg Most Recent Monitor Data Heart Rate from ECG 113 NIBP 136/106 NIBP BP-Mean 108 Respiration from ECG 27 SpO2 93 I&O: 07/10/17 07/11/17 07/12/17 06:59 06:59 06:59 Intake Total 5275.7 4104.9 Output Total 3485 1565 Balance 1790.7 2539.9 Result Diagrams: 07/11/17 04:28 07/11/17 04:28 Radiology Reviewed by me: Yes (pulmonary vascular congestion and edema. ) <James Miles - Last Filed: 07/11/17 08:24> - Objective Vital Signs & Weight: Vital Signs (12 hours) Temp Pulse Resp BP Pulse Ox 07/11/17 10:29 95 49 H 99 07/11/17 08:22 98.2 F 113 H 32 H 99 07/11/17 08:00 98.2 F 32 H 07/11/17 07:06 98 112/58 L 07/11/17 07:03 92 11 L 99 07/11/17 06:00 12 07/11/17 04:00 98.4 F 11 L 07/11/17 03:30 92 07/11/17 03:29 100 07/11/17 02:00 32 H 07/11/17 00:00 98.3 F 11 L Weight Admit Weight 97.069 kg Weight 101.8 kg Most Recent Monitor Data Heart Rate from ECG 95 NIBP 135/83 NIBP BP-Mean 101 Respiration from ECG 46 SpO2 96 I&O: 07/10/17 07/11/17 07/12/17 06:59 06:59 06:59 Intake Total 5275.7 4104.9 12 Output Total 3485 1565 205 Balance 1790.7 2539.9 -193 Result Diagrams: 07/11/17 04:28 07/11/17 04:28 <Barrington Weston - Last Filed: 07/11/17 10:49> Phys Exam - Physical Examination Constitutional: NAD HEENT: moist MMs, sclera anicteric Respiratory: no wheezing, clear to auscultation bilateral Cardiovascular: RRR, no significant murmur Gastrointestinal: soft, non-tender Musculoskeletal: no edema, pulses present Neurological: non-focal, moves all 4 limbs Psychiatric: normal affect Deviation from normal: alert and oriented to person and situation. cannot assess place and time. Skin: no rash, normal turgor <James Miles - Last Filed: 07/11/17 08:24> Dx/Plan (1) Acute and chronic respiratory failure with hypoxia Code(s): J96.21 - ACUTE AND CHRONIC RESPIRATORY FAILURE WITH HYPOXIA Status: Resolved Plan: - vent management per Pulm/CCU, plan for extubation today. ABG improved. - CXR shows vascular congestion. - making improvements - Consider diuresis since she is net positive nearly 4L this stay. (2) Septic shock Code(s): A41.9 - SEPSIS, UNSPECIFIED ORGANISM; R65.21 - SEVERE SEPSIS WITH SEPTIC SHOCK Status: Resolved Plan: Vanc/Zosyn day 3. Azithromycin day 2 BP improved. - continue IV fluids and antibiotics - vanc trough ordered. (3) Influenza B Code(s): J10.1 - FLU DUE TO OTH IDENT INFLUENZA VIRUS W OTH RESP MANIFEST Status: Acute Plan: Tamiflu day 3 - extubated today. (4) Aspiration pneumonia Code(s): J69.0 - PNEUMONITIS DUE TO INHALATION OF FOOD AND VOMIT Status: Acute QualifierTitle: Plan: Pneumonia vs pneumonitis. - continue antibiotics (5) Elevated brain natriuretic peptide (BNP) level Code(s): R79.89 - OTHER SPECIFIED ABNORMAL FINDINGS OF BLOOD CHEMISTRY Status : Acute Plan: EF 40-45% - consider diuresis if she develops hypoxia (6) Elevated troponin Code(s): R74.8 - ABNORMAL LEVELS OF OTHER SERUM ENZYMES Status: Acute Plan: trended down. (7) HTN (hypertension) Code(s): I10 - ESSENTIAL (PRIMARY) HYPERTENSION Status: Acute QualifierTitle: Plan: holding antihypertensives at this time. 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 Her hospice provider plans to meet with her as well. (9) Hypokalemia Code(s): E87.6 - HYPOKALEMIA Status: Acute Plan: replace per protocol. Magnesium improved, repeat tomorrow. will replace per protocol. Will likely need multiple electrolyte replacements as she diureses fluid from sepsis resuscitations. <James Miles W - Last Filed: 07/11/17 08:24> (1) Septic shock Code(s): A41.9 - SEPSIS, UNSPECIFIED ORGANISM; R65.21 - SEVERE SEPSIS WITH SEPTIC SHOCK Status: Resolved (2) Acute and chronic respiratory failure with hypoxia Code(s): J96.21 - ACUTE AND CHRONIC RESPIRATORY FAILURE WITH HYPOXIA Status: Acute (3) Influenza B Code(s): J10.1 - FLU DUE TO OTH IDENT INFLUENZA VIRUS W OTH RESP MANIFEST Status: Acute (4) Aspiration pneumonia Code(s): J69.0 - PNEUMONITIS DUE TO INHALATION OF FOOD AND VOMIT Status: Acute Qualifiers: Aspiration pneumonia type: due to vomit Laterality: unspecified laterality Lung location: unspecified part of lung Qualified Code(s): J69.0 - Pneumonitis due to inhalation of food and vomit (5) Depression Code(s): F32.9 - MAJOR DEPRESSIVE DISORDER, SINGLE EPISODE, UNSPECIFIED Status : Acute Qualifiers: Depression Type: unspecified Qualified Code(s): F32.9 - Major depressive disorder, single episode, unspecified (6) HTN (hypertension) Code(s): I10 - ESSENTIAL (PRIMARY) HYPERTENSION Status: Acute Qualifiers: Hypertension type: essential hypertension Qualified Code(s): I10 - Essential (primary) hypertension (7) [place]'s disease Code(s): G10 - MONY'S DISEASE Status: Acute (8) Elevated troponin Code(s): R74.8 - ABNORMAL LEVELS OF OTHER SERUM ENZYMES Status: Acute (9) Elevated brain natriuretic peptide (BNP) level Code(s): R79.89 - OTHER SPECIFIED ABNORMAL FINDINGS OF BLOOD CHEMISTRY Status : Acute <Barrington Weston - Last Filed: 07/11/17 10:49> Attending Addendum - Attending Addendum Date/Time: 07/11/17 1046 I personally evaluated the patient and discussed the management with Dr. Miles. I agree with the History, Examination, Assessment and Plan documented above with any addition or exceptions noted below. Patient with successful extubation this morning. She is currently resting comfortably and sats are 90s on 3L by NC. Denies complaints. She was informed about the recent events that led to her current state. She continues on antibiotics for UTI and possible pneumonia. Blood pressures continue to be at goal without use of pressors. Fluid rate decreased to prevent fluid overload with new onset of reduced EF on echo. This could be a temporary decrease in EF due to stunned myocardium from her critical illness, will likely need repeat in 3 months to asses if chronic. Electrolyte replacement as needed. Awaiting final cultures. Begin working with therapy now that off ventilator. Vanc trough appropriate, will continue until cultures result. <Barrington Weston R - Last Filed: 07/11/17 10:49>
[2017-07-11] MEDS ORDERED: DC Sedation Protocol FS ONE (08:29)
[2017-07-11] MEDS: Oseltamivir 6 MG/ML ORAL SUSP PER TUBE SCH ×2 (09:07→20:01)
[2017-07-11] MEDS: Enoxaparin Sodium 40 MG/0.4 ML SYRINGE SC SCH (09:07)
[2017-07-11] MEDS: Azithromycin 250 MG in Sodium Chloride 0.9% 250 ML 250 ML IVPB SCH (11:10)
[2017-07-11] MEDS ORDERED: clonazePAM 0.5 MG TAB PO SCH (11:30)
[2017-07-11] MEDS: Ondansetron ODT 4 MG TAB PO PRN (11:34)
[2017-07-11] MEDS: OLANZapine 5 MG TAB PO SCH (12:58)
[2017-07-11] MEDS ORDERED: Diazepam 5 MG TAB PO SCH ×2 (13:00)
[2017-07-11] MEDS: Gabapentin 300 MG CAP PO SCH ×2 (15:22→20:03)
[2017-07-11 15:24] LABS: Base Excess-Venous 0.9 mmol/L (0 (+/- 2.5)); Bicarbonate (HCO3v) 31.3 mmol/L (1.0-85.0); CO2 Tension (PvCO2) 77.6 mmHg (41.0-51.0); Calcium, Ionized 1.21 mmol/L (1.12-1.32); Hemoglobin - Calc 14.6 g/dL (12.0-18.0); Lactate 1.97 mmol/L (0.50-2.20); O2 Tension (PvO2) 83.5 mmHg (35.0-45.0); Potassium 3.8 mmol/L (3.4-4.7); T. Carbon Dioxide 33.6 mmol/L (1.0-85.0); pH (Venous) 7.213 (7.35-7.45); vO2 Saturation-calc 92.9 % (94-98)
[2017-07-11] MEDS: Pantoprazole 40 MG VIAL IVP SCH (20:00)
[2017-07-11] MEDS: rOPINIRole HCl 0.25 MG TAB PO SCH (20:01)
[2017-07-11] MEDS: DULoxetine 60 MG CAP PO SCH (20:01)
[2017-07-11] MEDS: clonazePAM 1 MG TAB PO SCH (20:03)
[2017-07-11] MEDS: clonazePAM 0.5 MG TAB PO SCH (20:03)
[2017-07-12] MEDS: Sodium Chloride 0.9% 1,000 ML IV SCH (03:16)
[2017-07-12] MEDS: Piperacillin/Tazobactam 3.375 GM in Sodium Chloride 0.9% 100 ML IVPB SCH ×4 (03:16→20:30)
[2017-07-12 05:48] LABS: #Lymphocytes 0.6 thou/uL (1.20-3.40); #Monocytes 0.2 thou/uL (0.11-0.59); #Neutrophils 9.7 thou/uL (1.40-6.50); %Eosinophils 0.1 % (0.0-10.0); %Lymphocytes 5.3 % (21.0-51.0); %Monocytes 1.7 % (0.0-10.0); %Neutrophils 92.9 % (42.0-75.0); Hemoglobin 9.8 g/dL (12.0-16.0); Mean Corpuscular HGB CONC 32.4 g/dL (32.0-36.0); Mean Corpuscular Hemoglobin 31.5 pg (27.0-31.0); Mean Platelet Volume 8.7 fL (7.4-10.4); Platelet Count 136 thou/uL (130-400); RBC Distribution Width 16.1 % (11.5-14.5); Red Blood Cell (RBC) Count 3.12 mill/uL (4.20-5.40); White Blood Cell (WBC) Count 10.5 thou/uL (4.8-10.8)
[2017-07-12 05:53] LABS: Anion Gap 13 mmol/L (10-20); BUN (Urea Nitrogen) 9 mg/dL (7.0-18.7); Calc. Creatinine Clearance 159 mL/min (70-130); Calcium 8.9 mg/dL (7.8-10.44); Carbon Dioxide 27 mmol/L (22-29); Chloride 108 mmol/L (98-107); Estimated GFR-MDRD 89; Glucose 104 mg/dL (70-105); Sodium 145 mmol/L (136-145)
[2017-07-12] MEDS: Potassium Chloride 40 MEQ in Premix Bag 1 BAG IVPB PRN (06:12)
--- NOTE | 2017-07-12 07:43 | PDOC.PULCC ---
CCU Progress Note: Subj/Obj - Subjective Date: 07/12/17 Time: 07:47 Narrative: Continues to be very tachepnic, but not really in distress - ROS Review of Systems: cough (can't "cough it up") - Objective Allergies/Adverse Reactions: Allergies Allergy/AdvReac Type Severity Reaction Status Date / Time iodine Allergy Verified 04/22/17 06:07 levofloxacin [From Levaquin] Allergy Verified 04/22/17 06:07 MAR Reviewed: Yes Vital Signs and I&O: Vital Signs Temp 98.3 F 07/12/17 04:00 Pulse 106 H 07/12/17 07:36 Resp 50 H 07/12/17 07:36 BP 112/58 L 07/11/17 07:06 Pulse Ox 99 07/12/17 07:38 Intake & Output 07/11/17 07/12/17 07/12/17 18:59 06:59 18:59 Intake Total 1195 1100 Output Total 1310 1280 185 Balance -115 -180 -185 Weight 221 lb 9.033 oz Intake: Intake, IV Amount 1195 980 Propofol 1000 mg (See 12 Protocol) IV INF PRN Rx#: [id number] Sodium Chloride 0.9% 1, 1183 980 000 ml @ 75 mls/hr IV . [id number] [facility] Rx#:[id number] Oral 120 Output: Output, [place] 1310 1280 185 Other: Voiding Method Indwelling Catheter Indwelling Catheter # Bowel Movements 1 Lines (incl Aterial, CVC, PICC+Insertion date): RIJ central line CCU Progress Note: Exam - Physical Exam Deviation from normal: rapid shallow breathing HEENT: PERRLA, sclera anicteric Neck: no nodes, no JVD Cardiovascular: RRR Focused Respiratory Location: rhonchi: Right, Left Gastrointestinal: soft, non-tender Musculoskeletal: no edema Deviation from normal: very weak Lymphatic: no nodes Psychiatric: normal affect, A&O x 3 Skin: no rash CCU Progress Note: Data - Labs Result Diagrams: 07/12/17 04:00 07/12/17 04:00 - Radiology Interpretation Chest x-ray Status: image reviewed by me (Bilateral infiltrates, R>L) Additional comments: bilateral infiltrates CCU Progress Note: A/P - Problems (1) Aspiration pneumonia Current Visit: Yes Status: Acute Code(s): J69.0 - PNEUMONITIS DUE TO INHALATION OF FOOD AND VOMIT Qualifiers: Aspiration pneumonia type: due to vomit Laterality: unspecified laterality Lung location: unspecified part of lung Qualified Code(s): J69.0 - Pneumonitis due to inhalation of food and vomit (2) Septic shock Current Visit: Yes Status: Resolved Code(s): A41.9 - SEPSIS, UNSPECIFIED ORGANISM; R65.21 - SEVERE SEPSIS WITH SEPTIC SHOCK (3) [place]'s disease Current Visit: Yes Status: Acute Code(s): G10 - MONY'S DISEASE (4) Influenza B Current Visit: Yes Status: Acute Code(s): J10.1 - FLU DUE TO OTH IDENT INFLUENZA VIRUS W OTH RESP MANIFEST (5) Acute and chronic respiratory failure with hypoxia Current Visit: Yes Status: Acute Code(s): J96.21 - ACUTE AND CHRONIC RESPIRATORY FAILURE WITH HYPOXIA (6) Pulmonary edema Current Visit: Yes Status: Acute Code(s): J81.1 - CHRONIC PULMONARY EDEMA - Time Spent with Patient Time (minutes): 30 (cc time) - Plan Plan: Continue BiPAP intermittently as needed Diurese Replace K and Mg Continue IV ABX Dc IVF and CVP
[2017-07-12] MEDS ORDERED: Potassium Chloride 20 MEQ TAB PO SCH (08:00)
[2017-07-12] MEDS ORDERED: Furosemide 20 MG/2 ML VIAL IVP SCH (08:00)
--- NOTE | 2017-07-12 08:04 | RAD ---
UPRIGHT PORTABLE CHEST 1 VIEW: HISTORY: A 47-year-old female with a history of fluid overload. COMPARISON: 07/11/17. FINDINGS: There are fairly extensive bilateral alveolar nodular parenchymal changes throughout both lungs which are somewhat more peripheral than when compared to the 07/10 study. The previously noted NG tube and endotracheal tube have been removed. IMPRESSION: Persistent bilateral alveolar nodular parenchymal changes throughout both lungs. The NG tube and end otracheal tube have been removed. Continued followup for complete clearing. POS: SHANA
[2017-07-12] MEDS: OLANZapine 5 MG TAB PO SCH (08:37)
[2017-07-12] MEDS: Gabapentin 300 MG CAP PO SCH ×3 (08:38→20:33)
[2017-07-12] MEDS: Oseltamivir 6 MG/ML ORAL SUSP PER TUBE SCH ×2 (08:39→20:31)
[2017-07-12] MEDS: clonazePAM 0.5 MG TAB PO SCH ×2 (08:39→20:31)
[2017-07-12] MEDS: Diazepam 5 MG TAB PO SCH (08:40)
[2017-07-12] MEDS: Azithromycin 250 MG in Sodium Chloride 0.9% 250 ML 250 ML IVPB SCH (08:41)
[2017-07-12] MEDS ORDERED: OLANZapine 5 MG TAB PO SCH (09:00)
[2017-07-12] MEDS: Enoxaparin Sodium 40 MG/0.4 ML SYRINGE SC SCH (09:05)
--- NOTE | 2017-07-12 09:09 | PDOC.FM ---
- Subjective Subjective: CC: difficulty breathing HPI: Nursing stated patient had tachypnea overnight. Dr. Simon started BiPAP. Patient currently off BiPAP and sitting in Neurochair. - Objective MAR Reviewed: Yes Vital Signs & Weight: Vital Signs (12 hours) Temp Pulse Resp Pulse Ox 07/12/17 08:00 97.7 F 07/12/17 07:38 99 07/12/17 07:36 106 H 50 H 99 07/12/17 07:33 97.7 F 108 H 65 H 100 07/12/17 04:00 98.3 F 07/12/17 02:10 82 07/11/17 21:55 81 Weight Admit Weight 97.069 kg Weight 100.5 kg Most Recent Monitor Data Heart Rate from ECG 124 NIBP 129/72 NIBP BP-Mean 97 Respiration from ECG 42 SpO2 89 I&O: 07/11/17 07/12/17 07/13/17 06:59 06:59 06:59 Intake Total 4104.9 2295 Output Total 1565 2590 610 Balance 5779.9 -295 -610 Result Diagrams: 07/12/17 04:00 07/12/17 04:00 Radiology Reviewed by me: Yes (pulmonary edema with multifocal pneumonia ) <James Miles W - Last Filed: 07/12/17 09:08> - Objective Vital Signs & Weight: Vital Signs (12 hours) Temp Pulse Resp Pulse Ox 07/12/17 08:00 97.7 F 07/12/17 07:38 99 07/12/17 07:36 106 H 50 H 99 07/12/17 07:33 97.7 F 108 H 65 H 100 07/12/17 04:00 98.3 F 07/12/17 02:10 82 Weight Admit Weight 97.069 kg Weight 100.5 kg Most Recent Monitor Data Heart Rate from ECG 110 NIBP 119/77 NIBP BP-Mean 87 Respiration from ECG 62 SpO2 87 I&O: 07/11/17 07/12/17 07/13/17 06:59 06:59 06:59 Intake Total 4104.9 2295 340 Output Total 1565 2590 2009 Balance 7629.9 -295 -6315 Result Diagrams: 07/12/17 04:00 07/12/17 04:00 <Barrington Weston R - Last Filed: 07/12/17 10:53> Phys Exam - Physical Examination Constitutional: NAD HEENT: moist MMs, sclera anicteric Respiratory: no wheezing, clear to auscultation bilateral Cardiovascular: RRR, no significant murmur Gastrointestinal: soft, non-tender, no distention Musculoskeletal: pulses present, edema present (trace. diffuse ) Neurological: non-focal, moves all 4 limbs Psychiatric: normal affect, A&O x 3 <James Miles W - Last Filed: 07/12/17 09:08> Dx/Plan (1) Acute and chronic respiratory failure with hypoxia Code(s): J96.21 - ACUTE AND CHRONIC RESPIRATORY FAILURE WITH HYPOXIA Status: Acute Plan: Required BiPAP overnight - Lasix 40 mg per Pulm - monitor (2) Septic shock Code(s): A41.9 - SEPSIS, UNSPECIFIED ORGANISM; R65.21 - SEVERE SEPSIS WITH SEPTIC SHOCK Status: Resolved Plan: Zosyn day 4. Azithromycin day 3 BP improved. - continue IV fluids and antibiotics - Pulm d/c vanc (3) Influenza B Code(s): J10.1 - FLU DUE TO OTH IDENT INFLUENZA VIRUS W OTH RESP MANIFEST Status: Acute Plan: Tamiflu day 4 (4) Aspiration pneumonia Code(s): J69.0 - PNEUMONITIS DUE TO INHALATION OF FOOD AND VOMIT Status: Acute QualifierTitle: Aspiration pneumonia type: due to vomit Laterality: unspecified laterality Lung location: unspecified part of lung Qualified Code(s): J69.0 - Pneumonitis due to inhalation of food and vomit Plan: Pneumonia vs pneumonitis. - continue antibiotics (5) Elevated brain natriuretic peptide (BNP) level Code(s): R79.89 - OTHER SPECIFIED ABNORMAL FINDINGS OF BLOOD CHEMISTRY Status : Acute Plan: EF 40-45% - Lasix 40 mg today (6) Elevated troponin Code(s): R74.8 - ABNORMAL LEVELS OF OTHER SERUM ENZYMES Status: Acute Plan: trended down. (7) HTN (hypertension) Code(s): I10 - ESSENTIAL (PRIMARY) HYPERTENSION Status: Acute QualifierTitle: Hypertension type: essential hypertension Qualified Code( s): I10 - Essential (primary) hypertension Plan: holding antihypertensives at this time. 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 Her hospice provider plans to meet with her as well. (9) Hypokalemia Code(s): E87.6 - HYPOKALEMIA Status: Acute Plan: replace per protocol. - replaced with 80 meq today - replace mag. <James Miles - Last Filed: 07/12/17 09:08> (1) Septic shock Code(s): A41.9 - SEPSIS, UNSPECIFIED ORGANISM; R65.21 - SEVERE SEPSIS WITH SEPTIC SHOCK Status: Resolved (2) Acute and chronic respiratory failure with hypoxia Code(s): J96.21 - ACUTE AND CHRONIC RESPIRATORY FAILURE WITH HYPOXIA Status: Acute (3) Influenza B Code(s): J10.1 - FLU DUE TO OTH IDENT INFLUENZA VIRUS W OTH RESP MANIFEST Status: Acute (4) Aspiration pneumonia Code(s): J69.0 - PNEUMONITIS DUE TO INHALATION OF FOOD AND VOMIT Status: Acute Qualifiers: Aspiration pneumonia type: due to vomit Laterality: unspecified laterality Lung location: unspecified part of lung Qualified Code(s): J69.0 - Pneumonitis due to inhalation of food and vomit (5) Depression Code(s): F32.9 - MAJOR DEPRESSIVE DISORDER, SINGLE EPISODE, UNSPECIFIED Status : Acute Qualifiers: Depression Type: unspecified Qualified Code(s): F32.9 - Major depressive disorder, single episode, unspecified (6) HTN (hypertension) Code(s): I10 - ESSENTIAL (PRIMARY) HYPERTENSION Status: Acute Qualifiers: Hypertension type: essential hypertension Qualified Code(s): I10 - Essential (primary) hypertension (7) Sharon's disease Code(s): G10 - MONY'S DISEASE Status: Acute (8) Elevated troponin Code(s): R74.8 - ABNORMAL LEVELS OF OTHER SERUM ENZYMES Status: Acute (9) Elevated brain natriuretic peptide (BNP) level Code(s): R79.89 - OTHER SPECIFIED ABNORMAL FINDINGS OF BLOOD CHEMISTRY Status : Acute <Barrington Weston - Last Filed: 07/12/17 10:53> Attending Addendum - Attending Addendum Date/Time: 07/12/17 1050 I personally evaluated the patient and discussed the management with Dr. Miles. I agree with the History, Examination, Assessment and Plan documented above with any addition or exceptions noted below. Patient continues to maintain oxygenation/ventilation without intubation. Her respiratory rate has increased, and she is requiring intermittent BIpap. We are beginning mild diuresis and she has already diuresed 2L. Hopefully this will improve her respiratory function. She is conversant and comfortable at this time. Continue Zosyn and Azithromycin for UTI and what appears to be multifocal pneumonia on today's CXR. Cultures growing E. coli in urine. Fluid rate decreased. Will need to start working with PT as able, anticipate several more days in hospital before ready for discharge. She did have concern for allergic reaction this morning, but after examining patient and obtaining more information, this is likely more related to flushing from magnesium administration. <Barrington Weston - Last Filed: 07/12/17 10:53>
[2017-07-12 11:14] LABS: Actual Bicarbonate (HCO3a) 30.9 mEq/L (22-26); Base Excess (BEa) 5.9 mEq/L (0 (+/-) 2.5); CO2 Tension 46.6 mmHg (35.0-45.0); O2 Tension (PaO2) 65.4 mmHg (80.0-100.0); pH, Arterial 7.44 (7.35-7.45)
[2017-07-12 11:15] LABS: Hematocrit-ABG 34.5 % (36.0-47.0); Hemoglobin (Hb) 30.9 g/dL (12.0-16.0)
[2017-07-12 11:16] LABS: Calcium, Ionized 1.3 mmol/L (1.12-1.30); Puncture Site LRA
[2017-07-12] MEDS: clonazePAM 1 MG TAB PO SCH (20:30)
[2017-07-12] MEDS: DULoxetine 60 MG CAP PO SCH (20:33)
[2017-07-12] MEDS: rOPINIRole HCl 0.25 MG TAB PO SCH (20:33)
[2017-07-13] MEDS: Piperacillin/Tazobactam 3.375 GM in Sodium Chloride 0.9% 100 ML IVPB SCH ×4 (01:45→20:45)
[2017-07-13 04:50] LABS: Anion Gap 10 mmol/L (10-20); BUN (Urea Nitrogen) 11 mg/dL (7.0-18.7); Calc. Creatinine Clearance 157 mL/min (70-130); Calcium 9.9 mg/dL (7.8-10.44); Carbon Dioxide 36 mmol/L (22-29); Chloride 100 mmol/L (98-107); Estimated GFR-MDRD 89; Glucose 105 mg/dL (70-105); Magnesium 1.7 mg/dL (1.6-2.6); Potassium 3.2 mmol/L (3.5-5.1); Sodium 143 mmol/L (136-145)
[2017-07-13] MEDS: Potassium Chloride 40 MEQ in Premix Bag 1 BAG IVPB PRN (06:29)
[2017-07-13] MEDS ORDERED: Potassium Chloride 20 MEQ TAB PO SCH (06:45)
[2017-07-13] MEDS ORDERED: Magnesium Oxide 400 MG TAB PO SCH (06:45)
--- NOTE | 2017-07-13 06:50 | PDOC.FM ---
- Subjective Subjective: CC: headache HPI: Sitting in neurochair eating breakfast. Used BiPAP overnight and states she feels better breathing. No nursing events overnight. Spoke with daughter yesterday. Still wants aggressive care and management. - Objective MAR Reviewed: Yes Vital Signs & Weight: Vital Signs (12 hours) Temp Pulse Resp Pulse Ox 07/13/17 06:27 67 98 07/13/17 06:24 71 31 H 97 07/13/17 04:00 98.8 F 07/13/17 02:32 70 27 H 97 07/13/17 00:00 98.6 F 95 07/12/17 22:13 87 07/12/17 22:12 98 52 H 97 07/12/17 20:00 98.8 F 07/12/17 19:33 98.8 F 112 H 40 H 94 L 07/12/17 19:00 98.8 F 07/12/17 18:49 94 48 H 100 Weight Admit Weight 97.069 kg Weight 97.4 kg Most Recent Monitor Data Heart Rate from ECG 66 NIBP 124/61 NIBP BP-Mean 88 Respiration from ECG 28 SpO2 96 I&O: 07/11/17 07/12/17 07/13/17 06:59 06:59 06:59 Intake Total 4104.9 2295 1365 Output Total 1605 2590 6659 Balance 2539.9 -295 -5260 Result Diagrams: 07/12/17 04:00 07/13/17 04:21 <James Miles - Last Filed: 07/13/17 08:52> - Objective Vital Signs & Weight: Vital Signs (12 hours) Temp Pulse Resp Pulse Ox 07/13/17 11:17 95 07/13/17 11:11 94 33 H 95 07/13/17 08:00 98.6 F 103 H 32 H 99 07/13/17 07:35 95 07/13/17 06:27 67 98 07/13/17 06:24 71 31 H 97 07/13/17 04:00 98.8 F 07/13/17 02:32 70 27 H 97 07/13/17 00:00 98.6 F 95 Weight Admit Weight 97.069 kg Weight 97.4 kg Most Recent Monitor Data Heart Rate from ECG 101 NIBP 123/74 NIBP BP-Mean 86 Respiration from ECG 41 SpO2 98 I&O: 07/12/17 07/13/17 07/14/17 06:59 06:59 06:59 Intake Total 2298 1365 580 Output Total 4857 8339 195 Balance -510 -2087 385 Result Diagrams: 07/12/17 04:00 07/13/17 04:21 <WestonBarrington R - Last Filed: 07/13/17 11:29> Phys Exam - Physical Examination Constitutional: NAD HEENT: moist MMs, sclera anicteric Respiratory: no wheezing, clear to auscultation bilateral Cardiovascular: RRR, no significant murmur Musculoskeletal: no edema, pulses present Psychiatric: normal affect, A&O x 3 Skin: no rash, cap refill <2 seconds <James Miles W - Last Filed: 07/13/17 08:52> Dx/Plan (1) Acute and chronic respiratory failure with hypoxia Code(s): J96.21 - ACUTE AND CHRONIC RESPIRATORY FAILURE WITH HYPOXIA Status: Acute Plan: Required BiPAP overnight. Respiratory rate appears to be slowing down - net diuresis of 5260mL yesterday. Currently -1499mL for this stay (2) Septic shock Code(s): A41.9 - SEPSIS, UNSPECIFIED ORGANISM; R65.21 - SEVERE SEPSIS WITH SEPTIC SHOCK Status: Resolved Plan: Zosyn day 5. Azithromycin day 4 BP stable - continue antibiotics (3) Influenza B Code(s): J10.1 - FLU DUE TO OTH IDENT INFLUENZA VIRUS W OTH RESP MANIFEST Status: Acute Plan: Tamiflu day 5 - d/c tamiflu tomorrow. (4) Aspiration pneumonia Code(s): J69.0 - PNEUMONITIS DUE TO INHALATION OF FOOD AND VOMIT Status: Acute QualifierTitle: Aspiration pneumonia type: due to vomit Laterality: unspecified laterality Lung location: unspecified part of lung Qualified Code(s): J69.0 - Pneumonitis due to inhalation of food and vomit Plan: Pneumonia vs pneumonitis. - continue antibiotics (5) Elevated brain natriuretic peptide (BNP) level Code(s): R79.89 - OTHER SPECIFIED ABNORMAL FINDINGS OF BLOOD CHEMISTRY Status : Acute Plan: EF 40-45% - diureses 5L yesterday (6) HTN (hypertension) Code(s): I10 - ESSENTIAL (PRIMARY) HYPERTENSION Status: Acute QualifierTitle: Hypertension type: essential hypertension Qualified Code( s): I10 - Essential (primary) hypertension Plan: holding antihypertensives at this time. 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 - daughter still wants patient to be full code. I discussed with her that her mother may need re-intubated if she continues to have rapid breathing. She expressed understanding. (8) Hypokalemia Code(s): E87.6 - HYPOKALEMIA Status: Acute Plan: replace per protocol. - replaced with 80 meq today - replace mag PO. She became tachycardic and flushed yesterday with IV magnesium <James Miles - Last Filed: 07/13/17 08:52> (1) Septic shock Code(s): A41.9 - SEPSIS, UNSPECIFIED ORGANISM; R65.21 - SEVERE SEPSIS WITH SEPTIC SHOCK Status: Resolved (2) Acute and chronic respiratory failure with hypoxia Code(s): J96.21 - ACUTE AND CHRONIC RESPIRATORY FAILURE WITH HYPOXIA Status: Acute (3) Influenza B Code(s): J10.1 - FLU DUE TO OTH IDENT INFLUENZA VIRUS W OTH RESP MANIFEST Status: Acute (4) Aspiration pneumonia Code(s): J69.0 - PNEUMONITIS DUE TO INHALATION OF FOOD AND VOMIT Status: Acute Qualifiers: Aspiration pneumonia type: due to vomit Laterality: unspecified laterality Lung location: unspecified part of lung Qualified Code(s): J69.0 - Pneumonitis due to inhalation of food and vomit (5) Depression Code(s): F32.9 - MAJOR DEPRESSIVE DISORDER, SINGLE EPISODE, UNSPECIFIED Status : Acute Qualifiers: Depression Type: unspecified Qualified Code(s): F32.9 - Major depressive disorder, single episode, unspecified (6) HTN (hypertension) Code(s): I10 - ESSENTIAL (PRIMARY) HYPERTENSION Status: Acute Qualifiers: Hypertension type: essential hypertension Qualified Code(s): I10 - Essential (primary) hypertension (7) 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 Miles. I agree with the History, Examination, Assessment and Plan documented above with any addition or exceptions noted below. Patient reports feeling improved today. Breathing better and now off Bipap after diuresis of over 5 L yesterday. Her BP continues to be stable. IVF have been stopped. Continue IV abx for her resolved septic shock 2/2 UTI and influenza. Begin therapy with PT. <Barrington Weston - Last Filed: 07/13/17 11:29>
[2017-07-13] MEDS: Diazepam 5 MG TAB PO SCH (09:23)
[2017-07-13] MEDS: Gabapentin 300 MG CAP PO SCH ×3 (09:23→21:52)
[2017-07-13] MEDS: clonazePAM 0.5 MG TAB PO SCH ×2 (09:24→21:51)
[2017-07-13] MEDS: OLANZapine 5 MG TAB PO SCH (09:24)
[2017-07-13] MEDS: Oseltamivir 6 MG/ML ORAL SUSP PER TUBE SCH ×2 (09:25→21:57)
[2017-07-13] MEDS: Enoxaparin Sodium 40 MG/0.4 ML SYRINGE SC SCH (09:25)
--- NOTE | 2017-07-13 11:25 | PRG ---
DATE OF SERVICE: 07/13/2017 PULMONARY AND CRITICAL CARE PROGRESS NOTE Thirty five minutes critical care time. SUBJECTIVE: The patient used BiPAP intermittently last night. She is currently sitting in a chair t his morning and feels better. PHYSICAL EXAMINATION: VITAL SIGNS: Her temperature is 98.8, pulse 56, blood pressure 124/61, O2 saturation 96%, respirator y rate is down into 20s and 30s. Intake for 24 hours 1365 and output 6625. HEENT: Unremarkable. NECK: No JVD. LUNGS: Few crackles. CARDIAC: S1 and S2 regular. ABDOMEN: Soft. EXTREMITIES: No edema. LABORATORY DATA: Sodium 143, potassium 3.2, chloride 100, CO2 of 36, BUN 11, creatinine 7, and gluco se 105. White blood cell count 10.5, hematocrit 30.3, and platelet count 136. PLAN: 1. Keep in ICU for now. 2. BiPAP intermittently as needed. 3. Continue antibiotics. 4. I would withhold diuresis today. 5. Replace potassium. 6. Continue low dose steroids. 7. Need to continue to consult with family regarding code status as the patient will likely be facin g similar situations as time goes on.
[2017-07-13] MEDS: Azithromycin 250 MG in Sodium Chloride 0.9% 250 ML 250 ML IVPB SCH (11:38)
[2017-07-13] MEDS: clonazePAM 1 MG TAB PO SCH (21:51)
[2017-07-13] MEDS: DULoxetine 60 MG CAP PO SCH (21:52)
[2017-07-13] MEDS: rOPINIRole HCl 0.25 MG TAB PO SCH (21:59)
[2017-07-14] MEDS: Piperacillin/Tazobactam 3.375 GM in Sodium Chloride 0.9% 100 ML IVPB SCH ×4 (02:45→19:50)
[2017-07-14 04:54] LABS: Anion Gap 13 mmol/L (10-20); BUN (Urea Nitrogen) 11 mg/dL (7.0-18.7); Calc. Creatinine Clearance 166 mL/min (70-130); Calcium 9.4 mg/dL (7.8-10.44); Carbon Dioxide 35 mmol/L (22-29); Chloride 100 mmol/L (98-107); Estimated GFR-MDRD Greater than 90; Glucose 145 mg/dL (70-105); Magnesium 1.8 mg/dL (1.6-2.6); Sodium 144 mmol/L (136-145)
--- NOTE | 2017-07-14 07:14 | PDOC.FM ---
- Subjective Subjective: Pt doing well this morning. On BIPAP. Denies any SOB. Denies any chest pain. Denies any acute events overnight. Resting comfortably. No concerns or complaints for me at this time. Pt was sleeping well. - Objective MAR Reviewed: Yes Vital Signs & Weight: Vital Signs (12 hours) Temp Pulse Resp Pulse Ox 07/14/17 04:00 98.5 F 07/14/17 03:19 69 23 H 99 07/14/17 00:00 98.6 F 07/13/17 22:34 90 34 H 97 07/13/17 20:00 98.6 F 90 30 H 94 L Weight Admit Weight 97.069 kg Weight 92.9 kg Most Recent Monitor Data Heart Rate from ECG 74 NIBP 128/72 NIBP BP-Mean 86 Respiration from ECG 25 SpO2 98 I&O: 07/13/17 07/14/17 07/15/17 06:59 06:59 06:59 Intake Total 1365 2457 Output Total 6625 2354 Balance -5260 103 Result Diagrams: 07/12/17 04:00 07/14/17 04:33 Radiology Reviewed by me: Yes (No new imaging.) <Ramiro Holm - Last Filed: 07/14/17 07:12> - Objective Vital Signs & Weight: Vital Signs (12 hours) Temp Pulse Resp Pulse Ox 07/14/17 07:41 97 07/14/17 07:38 79 31 H 97 07/14/17 07:00 97.8 F 07/14/17 04:00 98.5 F 07/14/17 03:19 69 23 H 99 07/14/17 00:00 98.6 F 07/13/17 22:34 90 34 H 97 Weight Admit Weight 97.069 kg Weight 92.9 kg Most Recent Monitor Data Heart Rate from ECG 106 NIBP 117/72 NIBP BP-Mean 81 Respiration from ECG 36 SpO2 95 I&O: 07/13/17 07/14/17 07/15/17 06:59 06:59 06:59 Intake Total 1365 2457 440 Output Total 6625 2354 265 Balance -5260 103 175 Result Diagrams: 07/12/17 04:00 07/14/17 04:33 <Elizabeth Crowley - Last Filed: 07/14/17 10:28> Phys Exam - Physical Examination Constitutional: NAD HEENT: PERRLA, moist MMs Neck: no nodes, supple, full ROM decreased breath movement bilaterally. On BIPAP hard to auscultate Cardiovascular: RRR, no significant murmur, no rub Gastrointestinal: soft, non-tender, no distention, positive bowel sounds Musculoskeletal: no edema, pulses present Has decreased movement of extremities Lymphatic: no nodes Psychiatric: normal affect, A&O x 3 Skin: no rash, normal turgor, cap refill <2 seconds <Ramiro Holm - Last Filed: 07/14/17 07:12> Dx/Plan (1) Septic shock Code(s): A41.9 - SEPSIS, UNSPECIFIED ORGANISM; R65.21 - SEVERE SEPSIS WITH SEPTIC SHOCK Status: Resolved (2) Acute and chronic respiratory failure with hypoxia Code(s): J96.21 - ACUTE AND CHRONIC RESPIRATORY FAILURE WITH HYPOXIA Status: Acute (3) Influenza B Code(s): J10.1 - FLU DUE TO OTH IDENT INFLUENZA VIRUS W OTH RESP MANIFEST Status: Acute (4) Aspiration pneumonia Code(s): J69.0 - PNEUMONITIS DUE TO INHALATION OF FOOD AND VOMIT Status: Acute QualifierTitle: Aspiration pneumonia type: due to vomit Laterality: unspecified laterality Lung location: unspecified part of lung Qualified Code(s): J69.0 - Pneumonitis due to inhalation of food and vomit (5) Depression Code(s): F32.9 - MAJOR DEPRESSIVE DISORDER, SINGLE EPISODE, UNSPECIFIED Status : Acute QualifierTitle: Depression Type: unspecified Qualified Code(s): F32.9 - Major depressive disorder, single episode, unspecified (6) HTN (hypertension) Code(s): I10 - ESSENTIAL (PRIMARY) HYPERTENSION Status: Acute QualifierTitle: Hypertension type: essential hypertension Qualified Code( s): I10 - Essential (primary) hypertension (7) 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 Respiratory rate appears to be slowing down. down to 28 this morning -Retained 100 ml fluid. Lasix held yesterday -Pulm consulted- Dr. Simon- follow recs. Continue to wean off BIPAP and monitor resiptory rate (2) Septic shock -2/2 to flu and E. coli UTIA Zosyn day 6. Azithromycin day 5 BP stable - continue antibiotics -Resolved at this time. (3) Influenza B Recieved 5 day course D/c at this time. (4) Aspiration pneumonia Pneumonia vs pneumonitis. - continue antibiotics per plan above (5) Elevated brain natriuretic peptide (BNP) level EF 40-45% - diureses 5L 2 days ago and lasix held yesterday (6) HTN (hypertension) holding antihypertensives at this time. BP stable this morning (7) Mony's disease Supportive care. -Dr. Simon following, breathing continues to improve. Continues to have discussion of prognosis - daughter still wants patient to be full code. I discussed with her that her mother may need re-intubated if she continues to have rapid breathing. She expressed understanding. (8) Hypokalemia replace per protocol. -Potasssium stable. Daily BMP and replace as needed <Ramiro Holm - Last Filed: 07/14/17 07:12> Attending Addendum - Attending Addendum Date/Time: 07/14/17 1027 I personally evaluated the patient and discussed the management with Dr. Holm. I agree with the History, Examination, Assessment and Plan documented above with any addition or exceptions noted below. The patient is still requiring bipap at night. She is slowly improving. Will maintain in the ICU. She completes tamiflu today. Will repeat labs tomorrow. <Elizabeth Crowley - Last Filed: 07/14/17 10:28>
--- NOTE | 2017-07-14 09:21 | PRG ---
DATE OF SERVICE: 07/14/2017 SUBJECTIVE: Ms. James is up in a chair this morning. She did have to use BiPAP last night, but overa ll respiratory status looks better. SUBJECTIVE: VITAL SIGNS: Temperature is 98.5, pulse 74, blood pressure 128/72. 24-hour intake 2457, output 2354 . HEENT: Unremarkable except for some pressure changes from the CPAP mask. NECK: No JVD. LUNGS: Coarse breath sounds. CARDIOVASCULAR: S1 and S2 regular. ABDOMEN: Soft, nontender. EXTREMITIES: Trace edema. LABORATORY DATA: Sodium 144, potassium 4.0, chloride 100, CO2 35, BUN 11, creatinine 0.6, glucose 14 5. ASSESSMENT: 1. Pneumonia. 2. Influenza type B. 3. Status post acute respiratory failure, requiring mechanical ventilation. 4. [place]'s disease. PLAN: 1. She is slowly improving in terms of respiratory muscle strength. I will keep her in the ICU for at least another day in hopes of weaning her off the BiPAP totally. 2. Continuing IV antibiotics. 3. Continue to monitor electrolytes. 4. Wean steroid dose.
[2017-07-14] MEDS: Gabapentin 300 MG CAP PO SCH ×3 (09:27→21:41)
[2017-07-14] MEDS: Magnesium Oxide 400 MG TAB PO PRN ×2 (09:27→21:43)
[2017-07-14] MEDS: clonazePAM 0.5 MG TAB PO SCH ×2 (09:27→21:41)
[2017-07-14] MEDS: Diazepam 5 MG TAB PO SCH (09:28)
[2017-07-14] MEDS: OLANZapine 5 MG TAB PO SCH (09:29)
[2017-07-14] MEDS: Enoxaparin Sodium 40 MG/0.4 ML SYRINGE SC SCH (09:29)
[2017-07-14] MEDS: Ondansetron ODT 4 MG TAB PO PRN (09:41)
[2017-07-14] MEDS: Oseltamivir 6 MG/ML ORAL SUSP PER TUBE SCH ×2 (11:15→21:42)
[2017-07-14] MEDS: clonazePAM 1 MG TAB PO SCH (21:41)
[2017-07-14] MEDS: DULoxetine 60 MG CAP PO SCH (21:41)
[2017-07-14] MEDS: rOPINIRole HCl 0.25 MG TAB PO SCH (21:43)
[2017-07-15] MEDS: Piperacillin/Tazobactam 3.375 GM in Sodium Chloride 0.9% 100 ML IVPB SCH ×4 (02:25→20:24)
[2017-07-15 05:05] LABS: Anion Gap 12 mmol/L (10-20); BUN (Urea Nitrogen) 11 mg/dL (7.0-18.7); Calc. Creatinine Clearance 152 mL/min (70-130); Calcium 9.1 mg/dL (7.8-10.44); Carbon Dioxide 35 mmol/L (22-29); Chloride 103 mmol/L (98-107); Estimated GFR-MDRD Greater than 90; Glucose 98 mg/dL (70-105); Magnesium 1.6 mg/dL (1.6-2.6); Potassium 3.7 mmol/L (3.5-5.1); Sodium 146 mmol/L (136-145)
[2017-07-15 05:15] LABS: Hemoglobin 10.6 g/dL (12.0-16.0); Mean Corpuscular HGB CONC 32.3 g/dL (32.0-36.0); Mean Corpuscular Hemoglobin 31.8 pg (27.0-31.0); Mean Corpuscular Volume 98.3 fl (81.0-99.0); Mean Platelet Volume 8.2 fL (7.4-10.4); Platelet Count 189 thou/uL (130-400); Red Blood Cell (RBC) Count 3.34 mill/uL (4.20-5.40); White Blood Cell (WBC) Count 10.3 thou/uL (4.8-10.8)
[2017-07-15 05:16] LABS: Band 7 % (5-11); Hypochromia SLIGHT = 6-15 cells (100X) (0-5/hpf); Lymphocytes 28 % (21-51); MDiff Complete? YES; Monocytes 11 % (0-10); Neutrophil 54 % (42-75); PLT Morphology Comment Appears Adequate
--- NOTE | 2017-07-15 07:32 | PDOC.FM ---
- Subjective Subjective: Pt doing well this morning. Did not use bipap at all last night. Says she didn' t sleep as well as it was a little harder to get comfortable. But says she toughed through it. Denies any fever or chills. Says overall she is feeling better. - Objective MAR Reviewed: Yes Vital Signs & Weight: Vital Signs (12 hours) Temp Pulse Resp Pulse Ox 07/15/17 04:13 98 28 H 99 07/15/17 04:00 98.6 F 07/15/17 00:00 98.5 F 07/14/17 22:44 88 24 H 99 07/14/17 20:00 98.7 F 94 26 H 100 Weight Admit Weight 97.069 kg Weight 92.6 kg Most Recent Monitor Data Heart Rate from ECG 101 NIBP 125/86 NIBP BP-Mean 89 Respiration from ECG 24 SpO2 97 I&O: 07/14/17 07/15/17 07/16/17 06:59 06:59 06:59 Intake Total 7323 1930 Output Total 2354 2480 Balance 103 -965 Result Diagrams: 07/15/17 04:43 07/15/17 04:43 Radiology Reviewed by me: Yes (No new imaging.) <Ramiro Holm - Last Filed: 07/15/17 07:30> - Objective Vital Signs & Weight: Vital Signs (12 hours) Temp Pulse Resp Pulse Ox 07/15/17 11:46 99.8 F H 07/15/17 10:58 97 24 H 98 07/15/17 08:00 98.8 F 97 24 H 95 07/15/17 07:41 85 24 H 07/15/17 07:00 98.5 F 07/15/17 04:13 98 28 H 99 07/15/17 04:00 98.6 F Weight Admit Weight 97.069 kg Weight 92.6 kg Most Recent Monitor Data Heart Rate from ECG 96 NIBP 132/67 NIBP BP-Mean 85 Respiration from ECG 23 SpO2 95 I&O: 07/14/17 07/15/17 07/16/17 06:59 06:59 06:59 Intake Total 2455 1934 655 Output Total 2354 2480 860 Balance 103 -546 -205 Result Diagrams: 07/15/17 04:43 07/15/17 04:43 <Elizabeth Crowley - Last Filed: 07/15/17 13:16> Phys Exam - Physical Examination Constitutional: NAD HEENT: PERRLA, moist MMs, sclera anicteric Neck: no nodes, supple, full ROM Respiratory: clear to auscultation bilateral mild rales and crackles noted bilaterally Cardiovascular: RRR, no significant murmur, no rub Gastrointestinal: soft, non-tender, no distention, positive bowel sounds Musculoskeletal: no edema, pulses present Neurological: non-focal 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 Lymphatic: no nodes Psychiatric: normal affect Skin: no rash, normal turgor, cap refill <2 seconds <CorinnaRamiro velazquez - Last Filed: 07/15/17 07:30> Dx/Plan (1) Septic shock Code(s): A41.9 - SEPSIS, UNSPECIFIED ORGANISM; R65.21 - SEVERE SEPSIS WITH SEPTIC SHOCK Status: Resolved (2) Acute and chronic respiratory failure with hypoxia Code(s): J96.21 - ACUTE AND CHRONIC RESPIRATORY FAILURE WITH HYPOXIA Status: Acute (3) Influenza B Code(s): J10.1 - FLU DUE TO OTH IDENT INFLUENZA VIRUS W OTH RESP MANIFEST Status: Acute (4) Aspiration pneumonia Code(s): J69.0 - PNEUMONITIS DUE TO INHALATION OF FOOD AND VOMIT Status: Acute QualifierTitle: Aspiration pneumonia type: due to vomit Laterality: unspecified laterality Lung location: unspecified part of lung Qualified Code(s): J69.0 - Pneumonitis due to inhalation of food and vomit (5) Depression Code(s): F32.9 - MAJOR DEPRESSIVE DISORDER, SINGLE EPISODE, UNSPECIFIED Status : Acute QualifierTitle: Depression Type: unspecified Qualified Code(s): F32.9 - Major depressive disorder, single episode, unspecified (6) HTN (hypertension) Code(s): I10 - ESSENTIAL (PRIMARY) HYPERTENSION Status: Acute QualifierTitle: Hypertension type: essential hypertension Qualified Code( s): I10 - Essential (primary) hypertension (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 Respiratory rate stable this morning. -Net ouput of 500 ml. Lasix being held -Pulm consulted- Dr. Simon- follow recs. Continue to wean off BIPAP and monitor resiptory rate. Did not require overnight. Stabilizing. (2) Septic shock -2/2 to flu and E. coli UTIA Zosyn day 7. Go 5 doses of Azithromycin. Completed course of tamiflu BP stable - continue antibiotics -sepsis Resolved at this time. (3) Influenza B Recieved 5 day course D/c at this time. (4) Aspiration pneumonia Pneumonia vs pneumonitis. - continue antibiotics per plan above (5) Elevated brain natriuretic peptide (BNP) level EF 40-45% - diureses 5L 2 days ago and lasix held yesterday. Had net loss yesterday without lasix. Continue to monitor. (6) HTN (hypertension) holding antihypertensives at this time. BP stable this morning (7) [place]'s disease Supportive care. -Dr. Simon following, breathing continues to improve. Continues to have discussion of prognosis - daughter still wants patient to be full code. I discussed with her that her mother may need re-intubated if she continues to have rapid breathing. She expressed understanding. (8) Hypokalemia replace per protocol. -Potasssium stable. Daily BMP and replace as needed <Ramiro Holm - Last Filed: 07/15/17 07:30> Attending Addendum - Attending Addendum Date/Time: 07/15/17 7739 I personally evaluated the patient and discussed the management with Dr. Holm. I agree with the History, Examination, Assessment and Plan documented above with any addition or exceptions noted below. The patient stayed off bipap last night. She is still very weak but slowly improving. Likely transfer to [facility]. Continue antibiotics. Hopefully PT can work with pt better out of the ICU. <Elizabeth Crowley - Last Filed: 07/15/17 13:16>
[2017-07-15] MEDS: OLANZapine 5 MG TAB PO SCH (09:09)
[2017-07-15] MEDS: Magnesium Oxide 400 MG TAB PO PRN (09:11)
[2017-07-15] MEDS: clonazePAM 0.5 MG TAB PO SCH ×2 (09:11→21:38)
[2017-07-15] MEDS: Gabapentin 300 MG CAP PO SCH ×3 (09:11→21:38)
[2017-07-15] MEDS: Diazepam 5 MG TAB PO SCH (09:11)
[2017-07-15] MEDS: Enoxaparin Sodium 40 MG/0.4 ML SYRINGE SC SCH (09:12)
--- NOTE | 2017-07-15 09:35 | PRG ---
DATE OF SERVICE: 07/15/2017. SUBJECTIVE: The patient did not require BiPAP last night, seems to be doing well this morning. PHYSICAL EXAMINATION: VITAL SIGNS: Temperature is 98.6, pulse 101, blood pressure 127/86. A 24-hour intake 1934, output 2 480. HEENT: Unremarkable. NECK: No JVD. CHEST: Coarse breath sounds. CARDIAC: S1 and S2 regular. ABDOMEN: Soft. EXTREMITIES: No edema. LABORATORY DATA: White blood cell count 10.3, hematocrit 32.8, platelet count 189. Sodium 146, pota ssium 3.7, chloride 103, CO2 35, BUN 11, creatinine 0.6, glucose 98. ASSESSMENT: 1. Pneumonia. 2. Influenza type B. 3. Status post acute respiratory failure requiring mechanical ventilation. 4. [place]'s disease. PLAN: Transfer to [facility], so that we can continue BiPAP. If she needs a backup, I am hopeful that she will need to use it at all. We are continuing IV antibiotics. The Tamiflu has been stopped, idalmis de leon she has had 5 days of treatment. Need to work on physical therapy.
[2017-07-15] MEDS ORDERED: Magnesium Sulfate 4 GM in Sodium Chloride 0.9% 250 ML 250 ML IVPB SCH (12:00)
[2017-07-15] MEDS: DULoxetine 60 MG CAP PO SCH (21:38)
[2017-07-15] MEDS: rOPINIRole HCl 0.25 MG TAB PO SCH (21:39)
[2017-07-16] MEDS: Piperacillin/Tazobactam 3.375 GM in Sodium Chloride 0.9% 100 ML IVPB SCH ×4 (02:13→22:13)
[2017-07-16] MEDS: Gabapentin 300 MG CAP PO SCH ×3 (08:19→22:13)
[2017-07-16] MEDS: clonazePAM 0.5 MG TAB PO SCH ×2 (08:19→22:13)
[2017-07-16] MEDS: Enoxaparin Sodium 40 MG/0.4 ML SYRINGE SC SCH (08:19)
[2017-07-16] MEDS: OLANZapine 5 MG TAB PO SCH (08:20)
[2017-07-16] MEDS: Diazepam 5 MG TAB PO SCH (08:20)
[2017-07-16 09:51] VITALS: BMI 37.1
--- NOTE | 2017-07-16 09:53 | PRG ---
DATE OF SERVICE: 07/16/2017 The patient is doing better. She did not require BiPAP yesterday. PHYSICAL EXAMINATION: VITAL SIGNS: Temperature is 98.6, pulse 91, respirations 18, O2 saturation 98% on 2 liters, blood pr essure 99/53. HEENT: Unremarkable. CHEST: Clear. CARDIAC: S1 and S2 regular. ABDOMEN: Soft. EXTREMITIES: No edema. ASSESSMENT: 1. Status post acute respiratory failure. 2. Influenza type B. 3. Pneumonia. PLAN: Mainly a rehab issue at this point. I think she could be switched over to Augmentin at any ti me. Should work towards perhaps either LTAC or rehab placement.
--- NOTE | 2017-07-16 10:04 | PDOC.FM ---
- Subjective Subjective: Patient reports improved breathing overnight. No bipap required for the second evening. Anxiety and resp distress still present, but continuing to improve each night. Denies CP, vomiting, abd pain, numbness, vision disturbances. Endorses occasional nausea, mild dizziness. - Objective MAR Reviewed: Yes Vital Signs & Weight: Vital Signs (12 hours) Temp Pulse Resp BP Pulse Ox 07/16/17 07:44 98.6 F 91 99/53 L 98 07/16/17 04:00 98.9 F 07/16/17 02:22 90 18 97 07/16/17 00:00 98.7 F 07/15/17 22:25 92 24 H 98 Weight Admit Weight 97.3 kg Weight 92.2 kg Most Recent Monitor Data Heart Rate from ECG 94 NIBP 96/48 NIBP BP-Mean 64 Respiration from ECG 19 SpO2 97 I&O: 07/15/17 07/16/17 07/17/17 06:59 06:59 06:59 Intake Total 1933 1844 Output Total 2480 2325 Balance -231 -758 Result Diagrams: 07/15/17 04:43 07/15/17 04:43 <Clif Evans M - Last Filed: 07/16/17 10:02> - Objective Vital Signs & Weight: Vital Signs (12 hours) Temp Pulse Resp BP Pulse Ox 07/16/17 10:10 97 07/16/17 10:07 98 24 H 97 07/16/17 07:44 98.6 F 91 99/53 L 98 07/16/17 04:00 98.9 F 07/16/17 02:22 90 18 97 07/16/17 00:00 98.7 F Weight Admit Weight 97.3 kg Weight 92.2 kg Most Recent Monitor Data Heart Rate from ECG 94 NIBP 96/48 NIBP BP-Mean 64 Respiration from ECG 19 SpO2 97 I&O: 07/15/17 07/16/17 07/17/17 06:59 06:59 06:59 Intake Total 1933 1844 Output Total 2480 2325 Balance -447 -769 Result Diagrams: 07/15/17 04:43 07/15/17 04:43 <Emily Mabry - Last Filed: 07/16/17 10:32> Phys Exam - Physical Examination Constitutional: NAD HEENT: PERRLA, moist MMs Neck: no JVD, supple mild wheezing throughout all lung padron Cardiovascular: RRR, no significant murmur Gastrointestinal: soft, non-tender Musculoskeletal: no edema, pulses present Neurological: non-focal, normal sensation Psychiatric: normal affect, A&O x 3 <CristinaClif - Last Filed: 07/16/17 10:02> Dx/Plan (1) Acute and chronic respiratory failure with hypoxia Code(s): J96.21 - ACUTE AND CHRONIC RESPIRATORY FAILURE WITH HYPOXIA Status: Acute Plan: continuing to improve, will continue to monitor and wean down on support as tolerated. Requires 3L NC baseline. (2) Aspiration pneumonia Code(s): J69.0 - PNEUMONITIS DUE TO INHALATION OF FOOD AND VOMIT Status: Resolved QualifierTitle: Aspiration pneumonia type: due to vomit Laterality: unspecified laterality Lung location: unspecified part of lung Qualified Code(s): J69.0 - Pneumonitis due to inhalation of food and vomit (3) Elevated brain natriuretic peptide (BNP) level Code(s): R79.89 - OTHER SPECIFIED ABNORMAL FINDINGS OF BLOOD CHEMISTRY Status : Acute Plan: ECHO showed EF 40-45%. Would benefit from an outpatient evaluation to see if this is acute. (4) [place]on's disease Code(s): G10 - MONY'S DISEASE Status: Acute (5) Hypokalemia Code(s): E87.6 - HYPOKALEMIA Status: Acute Plan: Appropriate today. Continue to monitor. (6) Influenza B Code(s): J10.1 - FLU DUE TO OTH IDENT INFLUENZA VIRUS W OTH RESP MANIFEST Status: Acute Plan: Stopped tamiflu regimen, completed. (7) Pulmonary edema Code(s): J81.1 - CHRONIC PULMONARY EDEMA Status: Acute (8) Sepsis Code(s): A41.9 - SEPSIS, UNSPECIFIED ORGANISM Status: Resolved (9) Anxiety Code(s): F41.9 - ANXIETY DISORDER, UNSPECIFIED Status: Acute Plan: Patient has been receiving home med regimen of klonipin and valium. Will continue on that with close monitoring of respiratory depression. (10) Depression Code(s): F32.9 - MAJOR DEPRESSIVE DISORDER, SINGLE EPISODE, UNSPECIFIED Status : Acute QualifierTitle: Depression Type: unspecified Qualified Code(s): F32.9 - Major depressive disorder, single episode, unspecified (11) HTN (hypertension) Code(s): I10 - ESSENTIAL (PRIMARY) HYPERTENSION Status: Acute QualifierTitle: Hypertension type: essential hypertension Qualified Code( s): I10 - Essential (primary) hypertension Plan: Has been more hypotensive in hospital, all BP meds have been held. Continue to monitor. (12) UTI (urinary tract infection) Status: Acute QualifierTitle: Urinary tract infection type: acute cystitis Hematuria presence: without hematuria Qualified Code(s): N30.00 - Acute cystitis without hematuria Plan: Significant resistance, susceptible to zosyn, so we will continue with that while in hospital. <Clif Evans - Last Filed: 07/16/17 10:02> Attending Addendum - Attending Addendum Date/Time: 07/16/17 1030 I personally evaluated the patient and discussed the management with Dr. Evans I agree with the History, Examination, Assessment and Plan documented above with any addition or exceptions noted below. Influenza B- s/p tamiflu Acute respiratory failure- resolving. On O2 and no bipap in >24 hours. Continue O2 Presumed aspiration pna- on Zosyn UTI-zosyn Corson's disease Anxiety-continue home meds Needs PT and consideration of LTAC vs rehab in the coming days. <Emily Mabyr - Last Filed: 07/16/17 10:32>
[2017-07-16] MEDS: Acetaminophen/Codeine 30-300mg Tablet PO PRN (16:24)
[2017-07-16] MEDS: DULoxetine 60 MG CAP PO SCH (22:13)
[2017-07-16] MEDS: rOPINIRole HCl 0.25 MG TAB PO SCH (22:14)
[2017-07-17] MEDS: Piperacillin/Tazobactam 3.375 GM in Sodium Chloride 0.9% 100 ML IVPB SCH ×2 (02:39→08:01)
--- NOTE | 2017-07-17 06:54 | PDOC.FM ---
- Subjective Subjective: Patient did well overnight. Tolerated NC at 2L. She denies CP, cough, vomiting, abd pain. - Objective MAR Reviewed: Yes Vital Signs & Weight: Vital Signs (12 hours) Temp Pulse Resp BP Pulse Ox 07/17/17 04:00 97.8 F 93 20 107/60 96 07/17/17 03:19 96 07/17/17 01:52 95 20 96 07/17/17 00:00 98.2 F 105 H 18 121/65 94 L 07/16/17 22:25 95 20 99 07/16/17 20:14 94 07/16/17 20:00 97.8 F 95 20 118/74 99 Weight Admit Weight 97.3 kg Weight 92.17 kg Most Recent Monitor Data Heart Rate from ECG 94 NIBP 96/48 NIBP BP-Mean 64 Respiration from ECG 19 SpO2 97 I&O: 07/15/17 07/16/17 07/17/17 06:59 06:59 06:59 Intake Total 6057 8306 1196 Output Total 8630 6104 8990 [facility]617 -768 -9650 Result Diagrams: 07/15/17 04:43 07/15/17 04:43 <Clif Evans M - Last Filed: 07/17/17 10:46> - Objective Vital Signs & Weight: Vital Signs (12 hours) Temp Pulse Pulse Pulse Resp BP BP 07/17/17 18:44 99 22 H 07/17/17 15:24 97.9 F 94 20 07/17/17 14:38 95 22 H 07/17/17 11:45 98.0 F 99 18 07/17/17 10:58 97 20 07/17/17 10:14 102 H 97 117/80 104/63 BP Pulse Ox Pulse Ox Pulse Ox 07/17/17 18:44 92 L 07/17/17 15:24 103/75 94 L 07/17/17 14:38 96 07/17/17 11:45 111/77 97 07/17/17 10:58 95 07/17/17 10:14 96 100 Weight Admit Weight 97.3 kg Weight 92.17 kg Most Recent Monitor Data Heart Rate from ECG 94 NIBP 96/48 NIBP BP-Mean 64 Respiration from ECG 19 SpO2 97 I&O: 07/16/17 07/17/17 07/18/17 06:59 06:59 06:59 Intake Total 7553 1497 1298 Output Total 4074 8766 2150 [facility]561 -2173 -852 Result Diagrams: 07/15/17 04:43 07/15/17 04:43 <Emily Mabry - Last Filed: 07/17/17 21:38> Phys Exam - Physical Examination Constitutional: NAD HEENT: moist MMs, oral pharynx no lesions Neck: no JVD faint crackles, improved from yesterday Cardiovascular: RRR, no significant murmur Gastrointestinal: soft, non-tender Musculoskeletal: no edema Neurological: non-focal, normal sensation Psychiatric: normal affect, A&O x 3 Skin: no rash <Clif Evans - Last Filed: 07/17/17 10:46> Dx/Plan (1) Acute and chronic respiratory failure with hypoxia Code(s): J96.21 - ACUTE AND CHRONIC RESPIRATORY FAILURE WITH HYPOXIA Status: Acute Plan: continuing to improve, will continue to monitor and wean down on support as tolerated. Requires 3L NC baseline and currently on 2L (2) Aspiration pneumonia Code(s): J69.0 - PNEUMONITIS DUE TO INHALATION OF FOOD AND VOMIT Status: Resolved QualifierTitle: Aspiration pneumonia type: due to vomit Laterality: unspecified laterality Lung location: unspecified part of lung Qualified Code(s): J69.0 - Pneumonitis due to inhalation of food and vomit Plan: switch to augmentin for another few days to complete 14 day course of abx after zosyn d/c today (3) Elevated brain natriuretic peptide (BNP) level Code(s): R79.89 - OTHER SPECIFIED ABNORMAL FINDINGS OF BLOOD CHEMISTRY Status : Acute Plan: ECHO showed EF 40-45%. Would benefit from an outpatient evaluation. (4) [place]'s disease Code(s): G10 - MONY'S DISEASE Status: Acute (5) Hypokalemia Code(s): E87.6 - HYPOKALEMIA Status: Acute (6) Influenza B Code(s): J10.1 - FLU DUE TO OTH IDENT INFLUENZA VIRUS W OTH RESP MANIFEST Status: Acute Plan: 5 day tamiflu course completed (7) Pulmonary edema Code(s): J81.1 - CHRONIC PULMONARY EDEMA Status: Acute (8) Sepsis Code(s): A41.9 - SEPSIS, UNSPECIFIED ORGANISM Status: Resolved (9) Anxiety Code(s): F41.9 - ANXIETY DISORDER, UNSPECIFIED Status: Acute Plan: Patient has been receiving home med regimen of klonipin and valium. Will continue on that with close monitoring of respiratory depression. (10) Depression Code(s): F32.9 - MAJOR DEPRESSIVE DISORDER, SINGLE EPISODE, UNSPECIFIED Status : Acute QualifierTitle: Depression Type: unspecified Qualified Code(s): F32.9 - Major depressive disorder, single episode, unspecified (11) HTN (hypertension) Code(s): I10 - ESSENTIAL (PRIMARY) HYPERTENSION Status: Acute QualifierTitle: Hypertension type: essential hypertension Qualified Code( s): I10 - Essential (primary) hypertension Plan: Has been more hypotensive in hospital, all BP meds have been held. Continue to monitor. (12) UTI (urinary tract infection) Status: Acute QualifierTitle: Urinary tract infection type: acute cystitis Hematuria presence: without hematuria Qualified Code(s): N30.00 - Acute cystitis without hematuria Plan: treated with zosyn - Plan Plan: discuss with CM about placement in LTAC vs SNF, possibly tomorow <Clif Evans - Last Filed: 07/17/17 10:46> Attending Addendum - Attending Addendum Date/Time: 07/17/17 0950 I personally evaluated the patient and discussed the management with Dr. Evans I agree with the History, Examination, Assessment and Plan documented above with any addition or exceptions noted below. Patient recovering well. Aspiration PNA- augmentin for 14 days [facility]- continue PT and work on SNF placement. Probably home tomorrow. <Emily Mabry - Last Filed: 07/17/17 21:38>
[2017-07-17] MEDS: Diazepam 5 MG TAB PO SCH (08:01)
[2017-07-17] MEDS: clonazePAM 0.5 MG TAB PO SCH ×2 (08:01→21:23)
[2017-07-17] MEDS: Enoxaparin Sodium 40 MG/0.4 ML SYRINGE SC SCH (08:01)
[2017-07-17] MEDS: Gabapentin 300 MG CAP PO SCH ×3 (08:01→21:23)
--- NOTE | 2017-07-17 09:23 | PRG ---
DATE OF SERVICE: 07/17/2017 SUBJECTIVE: The patient is doing reasonably well, had no complaints. OBJECTIVE: VITAL SIGNS: On exam, temperature 98.0, pulse 102, respirations 20, O2 sat 95% on 2 liters. HEENT: Unremarkable. NECK: No JVD. CHEST: Clear. CARDIAC: S1 and S2, regular. ABDOMEN: Soft. EXTREMITIES: No edema. LABORATORY DATA: No labs were done today. ASSESSMENT: 1. Status post respiratory failure, related to pneumonia. 2. [place]'s disease. 3. Influenza, type B. PLAN: For some reason, she was put on BiPAP last night. That will be stopped. [facility]. I am going to have them get her up into a ch air at least twice a day.
[2017-07-17] MEDS: Amoxicillin/Potassium Clav 500 MG TAB PO SCH ×2 (10:20→21:23)
[2017-07-17] MEDS: OLANZapine 5 MG TAB PO SCH (10:20)
[2017-07-17] MEDS: Acetaminophen/Codeine 30-300mg Tablet PO PRN (10:22)
[2017-07-17] MEDS: DULoxetine 60 MG CAP PO SCH (21:23)
[2017-07-17] MEDS: rOPINIRole HCl 0.25 MG TAB PO SCH (21:24)
[2017-07-18] MEDS: OLANZapine 5 MG TAB PO SCH (08:04)
[2017-07-18] MEDS: Diazepam 5 MG TAB PO SCH (08:04)
[2017-07-18] MEDS: Amoxicillin/Potassium Clav 500 MG TAB PO SCH (08:04)
[2017-07-18] MEDS: Gabapentin 300 MG CAP PO SCH ×2 (08:04→14:30)
[2017-07-18] MEDS: clonazePAM 0.5 MG TAB PO SCH (08:05)
[2017-07-18] MEDS: Enoxaparin Sodium 40 MG/0.4 ML SYRINGE SC SCH (08:09)
--- NOTE | 2017-07-18 10:01 | PDOC.FM ---
- Subjective Subjective: Patient reports doing well overnight, no bipap needed. Denies CP, SOB, N/V. - Objective MAR Reviewed: Yes Vital Signs & Weight: Vital Signs (12 hours) Temp Pulse Resp BP Pulse Ox 07/18/17 08:03 103 H 18 07/18/17 08:00 97.9 F 101 H 18 95 07/18/17 07:34 97.9 F 101 H 17 98/60 95 07/18/17 04:00 98.1 F 99 18 92/52 L 95 07/18/17 02:33 89 24 H 97 07/18/17 00:00 98.6 F 99 18 97/64 95 07/17/17 22:21 92 22 H 97 Weight Admit Weight 97.3 kg Weight 90.628 kg Most Recent Monitor Data Heart Rate from ECG 94 NIBP 96/48 NIBP BP-Mean 64 Respiration from ECG 19 SpO2 97 I&O: 07/17/17 07/18/17 07/19/17 06:59 06:59 06:59 Intake Total 1497 7078 Output Total 7981 1942 [employer]6271 -9147 Result Diagrams: 07/15/17 04:43 07/15/17 04:43 <Clif Evans - Last Filed: 07/18/17 11:07> - Objective Vital Signs & Weight: Vital Signs (12 hours) Temp Pulse Resp BP Pulse Ox 07/18/17 11:27 99.0 F 98 20 103/70 99 07/18/17 10:58 95 16 95 07/18/17 08:03 103 H 18 07/18/17 08:00 97.9 F 101 H 18 95 07/18/17 07:34 97.9 F 101 H 17 98/60 95 07/18/17 04:00 98.1 F 99 18 92/52 L 95 07/18/17 02:33 89 24 H 97 Weight Admit Weight 97.3 kg Weight 90.628 kg Most Recent Monitor Data Heart Rate from ECG 94 NIBP 96/48 NIBP BP-Mean 64 Respiration from ECG 19 SpO2 97 I&O: 07/17/17 07/18/17 07/19/17 06:59 06:59 06:59 Intake Total 149 1538 Output Total 3671 0465 1600 [facility]5 -1762 -1600 Result Diagrams: 07/15/17 04:43 04/22/18 04:43 <TrayGorge Dona - Last Filed: 07/18/17 13:50> Phys Exam - Physical Examination Neck: no JVD mild rales, continues to improve from yesterday Cardiovascular: RRR, no significant murmur Gastrointestinal: soft, non-tender Musculoskeletal: no edema, pulses present Neurological: non-focal, normal sensation Psychiatric: normal affect, A&O x 3 Skin: no rash <Clif Evans - Last Filed: 07/18/17 11:07> Dx/Plan (1) Acute and chronic respiratory failure with hypoxia Code(s): J96.21 - ACUTE AND CHRONIC RESPIRATORY FAILURE WITH HYPOXIA Status: Acute Plan: continuing to improve. Requires 3L NC baseline and currently on 2L (2) Aspiration pneumonia Code(s): J69.0 - PNEUMONITIS DUE TO INHALATION OF FOOD AND VOMIT Status: Resolved QualifierTitle: Aspiration pneumonia type: due to vomit Laterality: unspecified laterality Lung location: unspecified part of lung Qualified Code(s): J69.0 - Pneumonitis due to inhalation of food and vomit Plan: augmentin for another few days to complete 14 day course of abx after zosyn (3) Elevated brain natriuretic peptide (BNP) level Code(s): R79.89 - OTHER SPECIFIED ABNORMAL FINDINGS OF BLOOD CHEMISTRY Status : Acute Plan: ECHO showed EF 40-45%. Would benefit from an outpatient evaluation. (4) [place]'s disease Code(s): G10 - MONY'S DISEASE Status: Acute (5) Hypokalemia Code(s): E87.6 - HYPOKALEMIA Status: Acute (6) Influenza B Code(s): J10.1 - FLU DUE TO OTH IDENT INFLUENZA VIRUS W OTH RESP MANIFEST Status: Acute Plan: 5 day tamiflu course completed (7) Pulmonary edema Code(s): J81.1 - CHRONIC PULMONARY EDEMA Status: Acute (8) Sepsis Code(s): A41.9 - SEPSIS, UNSPECIFIED ORGANISM Status: Resolved (9) Anxiety Code(s): F41.9 - ANXIETY DISORDER, UNSPECIFIED Status: Acute Plan: Patient has been receiving home med regimen of klonipin and valium. Will continue on that with close monitoring of respiratory depression. (10) Depression Code(s): F32.9 - MAJOR DEPRESSIVE DISORDER, SINGLE EPISODE, UNSPECIFIED Status : Acute QualifierTitle: Depression Type: unspecified Qualified Code(s): F32.9 - Major depressive disorder, single episode, unspecified (11) HTN (hypertension) Code(s): I10 - ESSENTIAL (PRIMARY) HYPERTENSION Status: Acute QualifierTitle: Hypertension type: essential hypertension Qualified Code( s): I10 - Essential (primary) hypertension Plan: Has been more hypotensive in hospital, all BP meds have been held. Continue to monitor. (12) UTI (urinary tract infection) Status: Acute QualifierTitle: Urinary tract infection type: acute cystitis Hematuria presence: without hematuria Qualified Code(s): N30.00 - Acute cystitis without hematuria Plan: treated with zosyn - Plan Plan: discussed with Dr. Simon of pulmonology, recs greatly appreciated Will plan to d/c to [facility] <Clif Evans - Last Filed: 07/18/17 11:07> Attending Addendum - Attending Addendum Date/Time: 07/18/17 1350 I personally evaluated the patient and discussed the management with Dr. Evans. I agree with the History, Examination, Assessment and Plan documented above with any addition or exceptions noted below. <Gorge Feliz A - Last Filed: 07/18/17 13:50>
--- NOTE | 2017-07-18 10:55 | PRG ---
DATE OF SERVICE: 07/18/2017 SUBJECTIVE: The patient is doing reasonably well, had no acute complaints. PHYSICAL EXAMINATION: VITAL SIGNS: Temperature 97.9, pulse 103, respirations 18, O2 sat 95% on 2 L, blood pressure 90/60. HEENT: Unremarkable. NECK: No JVD. CHEST: Clear without wheeze or rhonchi. CARDIAC: S1, S2 regular. ABDOMEN: Soft. EXTREMITIES: No edema. ASSESSMENT: 1. Status post respiratory failure related to pneumonia. 2. [place]'s disease. 3. Influenza type B. PLAN: She can go home - to the intermediate. I would advise completing 7-10 days of antibiotics in totality. She may need to have a swallowing evaluation as an outpatient. Her steroids can be stoppe d.
[2017-07-18 11:28] VITALS: BP 103/70; TEMP 99
== END 2017-07-18 15:55 | disposition hospice, inpatient (51) | DRG 871 ==
LOC: ERS 06:30 → CCU 09:45 → IMCU/EMU 07-16 07:17
PROVIDERS: ADMIT Family Medicine; ATTEND Family Medicine
PROC: 5A1945Z Respiratory Ventilation, 24-96 Consecutive Hours (ICD-10-PCS; principal; 2017-07-09)
PROC: 03HY32Z Insertion of Monitoring Device into Upper Artery, Percutaneous Approach (ICD-10-PCS; 2017-07-09)
PROC: 4A133B1 Monitoring of Arterial Pressure, Peripheral, Percutaneous Approach (ICD-10-PCS; 2017-07-09)
PROC: 4A133J1 Monitoring of Arterial Pulse, Peripheral, Percutaneous Approach (ICD-10-PCS; 2017-07-09)
PROC: 05H533Z Insertion of Infusion Device into Right Subclavian Vein, Percutaneous Approach (ICD-10-PCS; 2017-07-09)
PROC: 5A09357 Assistance with Respiratory Ventilation, Less than 24 Consecutive Hours, Continuous Positive Airway Pressure (ICD-10-PCS; 2017-07-12)
DX: A41.89 Other specified sepsis (principal); J96.02 Acute respiratory failure with hypercapnia; J69.0 Pneumonitis due to inhalation of food and vomit; R65.21 Severe sepsis with septic shock; J96.21 Acute and chronic respiratory failure with hypoxia; G10 Huntington's disease; N30.00 Acute cystitis without hematuria; A41.51 Sepsis due to Escherichia coli [E. coli]; J10.1 Influenza due to other identified influenza virus with other respiratory manifestations; K21.9 Gastro-esophageal reflux disease without esophagitis; F41.9 Anxiety disorder, unspecified; F32.9 Major depressive disorder, single episode, unspecified; M06.9 Rheumatoid arthritis, unspecified; E87.6 Hypokalemia; I10 Essential (primary) hypertension; R79.89 Other specified abnormal findings of blood chemistry; Z51.5 Encounter for palliative care
CPT/HCPCS: 36415; 36416; 36556; 36620; 51702; 71045; 80048; 80053; 80202; 81003; 81015; 82330; 82550; 82553; 82803; 82805; 83605; 83735; 83880; 84145; 84484; 84703; 85025; 85060; 87040; 87077; 87086; 87186; 87804; 93005; 93306; 94002; 94003; 94640; 94660; 96361; 96365; 96366; 96375; A4216; C9113; G8981-GP-CN; G8982-GP-CM; G8996-GN-CK; G8997-GN-CI; J0456; J1650; J1940; J2543; J2704; J2920; J3010; J3370; J3475; J3480; J7050; J7611; J7620; Q0162

== ENCOUNTER 2017-08-16 18:39 | Emergency (ER) | payer OTHER ==
[2017-08-16 18:49] LABS: Base Excess-Venous -9.9 mmol/L (0 (+/- 2.5)); Bicarbonate (HCO3v) 23.2 mmol/L (1.0-85.0); CO2 Tension (PvCO2) 92.5 mmHg (41.0-51.0); Calcium, Ionized 1.53 mmol/L (1.12-1.32); Hemoglobin - Calc 13.4 g/dL (12.0-18.0); O2 Tension (PvO2) 42.4 mmHg (35.0-45.0); Potassium 5.8 mmol/L (3.4-4.7); pH (Venous) 7.006 (7.35-7.45); vO2 Saturation-calc 51.8 % (94-98)
--- NOTE | 2017-08-16 20:04 | RAD ---
PORTABLE CHEST: 08/16/2017 PROVIDED CLINICAL HISTORY: Trauma. COMPARISON: 07/12/2017 FINDINGS: The cardiac silhouette is within normal limits. There is an endotracheal tube in place, The tip of which terminates in the region of the thoracic inlet. There is bilateral air space disease, greater involving the right hemithorax. Blunting of the left costophrenic angle may reflect pleural fluid. The supine nature of the examination is not sensitive for detection of pneumothorax, without definite evidence for such. The bony thorax appears grossly intact, as visualized. Metallic densities proje cting over the upper chest bilaterally are presumably external to the patient. IMPRESSION: Bilateral air space disease, greater on the right. Findings may reflect edema, hemorrhage, or pneumo jef. POS: [facility]
[2017-08-17] MEDS ORDERED: Sodium Bicarb 50 MEQ/50 ML Abboject 8.4% SYRINGE ONE (11:27)
[2017-08-17] MEDS ORDERED: EPINEPHrine 1 MG/10 ML Abboject SYRINGE ONE (11:27)
== END 2017-08-16 18:53 | disposition expired ==
LOC: ERS 18:39
DX: G10 Huntington's disease (principal); I10 Essential (primary) hypertension; J18.9 Pneumonia, unspecified organism; M06.9 Rheumatoid arthritis, unspecified; K21.9 Gastro-esophageal reflux disease without esophagitis; D64.9 Anemia, unspecified; F41.9 Anxiety disorder, unspecified; F32.9 Major depressive disorder, single episode, unspecified; Z79.899 Other long term (current) drug therapy
CPT/HCPCS: 36416; 71045; 82330; 82435; 82803; 84132; 84295; 85014; 92950; 96374; 96375